=== PATIENT | male | born 1935 | race Caucasian/White ===

== ENCOUNTER → 2017-10-12 | Outpatient (CLI) | payer MEDICARE ==
[2017-10-12] MEDS: REGADENOSON 0.4 MG/5 ML DISP.SYRIN. IV (10:31)
== END | disposition home or self-care (01) ==
LOC: NM 12:01
DX: I08.3 Combined rheumatic disorders of mitral, aortic and tricuspid valves (principal); I48.91 Unspecified atrial fibrillation; I27.20 Pulmonary hypertension, unspecified; R53.83 Other fatigue
CPT/HCPCS: 78452; 93017; 93306; 96374; 96375; 96376; A9500; J2785

== ENCOUNTER → 2017-11-02 | Outpatient (CLI) | payer MEDICARE ==
[2017-11-02] MEDS: ALBUTEROL SULFATE 2.5 MG/3 ML NEBU. NEB (10:28)
== END | disposition home or self-care (01) ==
LOC: PF 09:34
DX: J98.8 Other specified respiratory disorders (principal)
CPT/HCPCS: 94060; 94640; 94729; J7613

== ENCOUNTER → 2018-02-28 | Outpatient (CLI) | payer MEDICARE ==
[~2018-02-28] MED LIST: CONTRAST GIVEN. MC
[2018-02-28] MEDS: IOHEXOL 300 MG/ML 100ML VIAL. IV (09:07)
== END | disposition home or self-care (01) ==
LOC: CT 08:27
DX: I71.4 Abdominal aortic aneurysm, without rupture (principal); I70.1 Atherosclerosis of renal artery; K57.30 Diverticulosis of large intestine without perforation or abscess without bleeding; I13.2 Hypertensive heart and chronic kidney disease with heart failure and with stage 5 chronic kidney disease, or end stage renal disease; I50.9 Heart failure, unspecified; N18.5 Chronic kidney disease, stage 5; E21.2 Other hyperparathyroidism; E78.5 Hyperlipidemia, unspecified; D63.1 Anemia in chronic kidney disease; Z95.1 Presence of aortocoronary bypass graft; Z87.891 Personal history of nicotine dependence; Z90.49 Acquired absence of other specified parts of digestive tract
CPT/HCPCS: 71275; 74174; Q9967

== ENCOUNTER 2018-11-13 18:09 | Inpatient (IN) | payer MEDICARE ==
[~2018-11-13] VITALS: Ht 180.3 cm; Wt 68.2 kg
[2018-11-13] VITALS (9 sets, daily range): BP systolic 92–107; BP diastolic 60–69
[~2018-11-13 18:09] MED LIST changes: +ASPI81TA59 PO; +ATORVASTATIN CA80 MG PO; +AZIT250T6 PO; +CALC0.256 PO; +CALC667C6 PO; -CONTRAST GIVEN. MC; +DILT180C29 PO; +FERR-36 PO; +FURO40TA4 PO; +HYDR-2678 PO; +HYDR-2869 PO; +LOSA100T14 PO; +METO50TA29 PO; +MULT-460 PO
[2018-11-13] MEDS ORDERED: IPRATROPIUM BROMIDE 0.5 MG/2.5 ML NEBU. NEB ONE (18:30)
[2018-11-13] MEDS ORDERED: ALBUTEROL SULFATE 2.5 MG/3 ML NEBU. CONT NEB ONE (18:30)
[2018-11-13] MEDS ORDERED: methylPREDNISolone SOD SUCC PF 125 MG/2 ML VIAL. IV ONE (18:30)
[2018-11-13 18:33] LABS: BASO # 0.1 x10^3/uL (0.0-0.2); BASO % 1 % (0-3); EOS # 1.5 x10^3/uL (0.0-0.7); EOS % 13 % (0-3); HEMATOCRIT 38.3 % (39.0-53.0); HEMOGLOBIN 12.2 g/dL (13.0-17.5); LYMPH # 2.8 x10^3/uL (1.0-4.8); LYMPH % 23 % (24-48); MEAN CORPUSCULAR HEMOGLOBIN 31 pg (25-35); MEAN CORPUSCULAR HGB CONC 32 g/dL (31-37); MEAN CORPUSCULAR VOLUME 99 fL (79-100); MONO % 8 % (0-9); NEUT # 6.8 x10^3uL (1.8-7.7); NEUT % 56 % (31-73); PLATELET COUNT 148 x10^3/uL (140-400); RED BLOOD COUNT 3.89 x10^6/uL (4.30-5.70); RED CELL DISTRIBUTION WIDTH 15.4 % (11.5-14.5); WHITE BLOOD COUNT 12.3 x10^3/uL (4.0-11.0)
--- NOTE | 2018-11-13 18:37 | PHYS DOC ---
Past Medical History Past Medical History: Anemia, CAD, Depression, High Cholesterol, Hypertension, Renal Disease, Renal Failure, Other Additional Past Medical Histor: ESRD, Aortic dissection Past Surgical History: Appendectomy, Cholecystectomy, Coronary Bypass Surgery, Tonsillectomy, Other Additional Past Surgical Histo: CABG, cataract extraction, fistula KEI Arm Alcohol Use: Rarely Drug Use: None Adult General Chief Complaint Chief Complaint: DYSPNEA/RESPIRATOY DISTRESS HPI HPI Patient is an 83-year-old male who presents with reports of acute onset of shortness of breath that started earlier this afternoon. Patient states that for the last couple of days that he is not been feeling well, stating that he has been fatigued and a little bit short of breath. He is a dialysis patient and had full dialysis today. Medics indicate that they had arrived that patient' s oxygen saturation was 97% on 3 L of home oxygen but patient was obviously with labored breathing. They indicate that during the short duration that patient was removed from his oxygen and transferred to stretcher that his saturation had dropped down to 63%. Patient was placed on CPAP at this point and states that symptoms had improved a little bit. Patient has had a cough that is been nonproductive. Additional history is limited due to respiratory difficulties. Review of Systems Review of Systems Constitutional: Denies fever or chills [] Respiratory: Positive coughing and shortness of breath [] Cardiovascular: No additional information not addressed in HPI [] GI: Denies abdominal pain, nausea, vomiting or diarrhea [] Integument: Denies rash or skin lesions [] All other systems were reviewed and found to be within normal limits, except as documented in this note. Current Medications Current Medications Current Medications Medications (Trade) Dose Ordered Sig/Mesha Start Time Stop Time Status Last Admin Dose Admin Albuterol Sulfate (Ventolin Neb Soln) 10 mg 1X ONCE 11/13/18 18:30 11/13/18 18:31 DC 11/13/18 18:51 10 MG Ipratropium [place] (Atrovent) 0.5 mg 1X ONCE 11/13/18 18:30 11/13/18 18:31 DC 11/13/18 18:51 0.5 MG Methylprednisolone Sodium Succinate (SOLU-Medrol 125MG VIAL) 125 mg 1X ONCE 11/13/18 18:30 11/13/18 18:31 DC 11/13/18 18:35 125 MG Sodium Chloride 500 ml @ 250 mls/hr 1X ONCE 11/13/18 19:30 11/13/18 21:29 11/13/18 19:31 250 MLS/HR Allergies Allergies Allergies Coded Allergies Type Severity Reaction Last Updated Verified lisinopril Allergy Severe 03/11/15 Yes Physical Exam Physical Exam Constitutional: Well developed, well nourished, in mild respiratory distress, non-toxic appearance. [] HENT: Normocephalic, atraumatic, bilateral external ears normal, oropharynx moist, no oral exudates, nose normal. [] Eyes: PERRLA, EOMI, conjunctiva normal, no discharge. [] Neck: Normal range of motion, no tenderness, supple, no stridor. [] Cardiovascular: Tachycardic rate with irregular rhythm[] Lungs & Thorax: Significantly reduced breath sounds are noted bilaterally with fine wheezes to auscultation [] Abdomen: Bowel sounds normal, soft, no tenderness. [] Skin: Warm, dry, no erythema, no rash. [] Extremities: No tenderness, no cyanosis, no clubbing, ROM intact, with 1+ pitting edema. [] Neurologic: Awake and alert, no focal deficits noted. [] Current Patient Data Vital Signs Vital Signs Date Time Temp Pulse Resp B/P (MAP) Pulse Ox O2 Delivery O2 Flow Rate FiO2 11/13/18 19:30 70 24 96/53 (67) 100 BiPAP/CPAP 11/13/18 18:16 97.4 97.4 Lab Values Laboratory Tests Test 11/13/18 18:15 11/13/18 18:37 11/13/18 18:40 White Blood Count 12.3 x10^3/uL (4.0-11.0) H Red Blood Count 3.89 x10^6/uL (4.30-5.70) L Hemoglobin 12.2 g/dL (13.0-17.5) L Hematocrit 38.3 % (39.0-53.0) L Mean Corpuscular Volume 99 fL (79-100) Mean Corpuscular Hemoglobin 31 pg (25-35) Mean Corpuscular Hemoglobin Concent 32 g/dL (31-37) Red Cell Distribution Width 15.4 % (11.5-14.5) H Platelet Count 148 x10^3/uL (140-400) Neutrophils (%) (Auto) 56 % (31-73) Lymphocytes (%) (Auto) 23 % (24-48) L Monocytes (%) (Auto) 8 % (0-9) Eosinophils (%) (Auto) 13 % (0-3) H Basophils (%) (Auto) 1 % (0-3) Neutrophils # (Auto) 6.8 x10^3uL (1.8-7.7) Lymphocytes # (Auto) 2.8 x10^3/uL (1.0-4.8) Monocytes # (Auto) 1.0 x10^3/uL (0.0-1.1) Eosinophils # (Auto) 1.5 x10^3/uL (0.0-0.7) H Basophils # (Auto) 0.1 x10^3/uL (0.0-0.2) Segmented Neutrophils % 51 % (35-66) Band Neutrophils % 1 % (0-9) Lymphocytes % 24 % (24-48) Monocytes % 10 % (0-10) Eosinophils % 13 % (0-5) H Basophils % 1 % (0-3) Platelet Estimate Adequate (ADEQUATE) Anisocytosis Slight Crenated Cell Present Schistocytes Occ Sodium Level 135 mmol/L (136-145) L Potassium Level 3.8 mmol/L (3.5-5.1) Chloride Level 97 mmol/L (98-107) L Carbon Dioxide Level 28 mmol/L (21-32) Anion Gap 10 (6-14) Blood Urea Nitrogen 37 mg/dL (8-26) H Creatinine 3.8 mg/dL (0.7-1.3) H Estimated GFR (Cockcroft-Gault) 15.3 BUN/Creatinine Ratio 10 (6-20) Glucose Level 245 mg/dL (70-99) H Calcium Level 8.7 mg/dL (8.5-10.1) Phosphorus Level 5.5 mg/dL (2.6-4.7) H Magnesium Level 2.1 mg/dL (1.8-2.4) Total Bilirubin 0.9 mg/dL (0.2-1.0) Aspartate Amino Transferase (AST) 38 U/L (15-37) H Alanine Aminotransferase (ALT) 33 U/L (16-63) Alkaline Phosphatase 157 U/L (46-116) H Troponin I Quantitative 0.078 ng/mL (0.000-0.055) MN-Eby-G-Type Natriuretic Peptide > 26408 pg/mL (0-449) H Total Protein 7.6 g/dL (6.4-8.2) Albumin 3.9 g/dL (3.4-5.0) Albumin/Globulin Ratio 1.1 (1.0-1.7) Influenza Type A Antigen Negative (NEGATIVE) Influenza Type B Antigen Negative (NEGATIVE) O2 Saturation 98 % (92-99) Arterial Blood pH 7.25 (7.35-7.45) L Arterial Blood pCO2 at Patient Temp 59 mmHg (35-46) H Arterial Blood pO2 at Patient Temp 132 mmHg (65-108) H Arterial Blood HCO3 25 mmol/L (21-28) Arterial Blood Base Excess -3 mmol/L (-3-3) FiO2 35 Laboratory Tests 11/13/18 18:15 Laboratory Tests 11/13/18 18:15 EKG EKG [] Interpretation Time: EKG demonstrates tachycardic rate with irregular rhythm with rate of 113. Radiology/Procedures Radiology/Procedures [] Course & Med Decision Making Course & Med Decision Making Pertinent Labs and Imaging studies reviewed. (See chart for details) [] Dragon Disclaimer Dragon Disclaimer This electronic medical record was generated, in whole or in part, using a voice recognition dictation system. Departure Departure Impression: Primary Impression: Acute hypercapnic respiratory failure Additional Impressions: ESRD (end stage renal disease) on dialysis CHF (congestive heart failure) Hypotension Disposition: ADMITTED INPATIENT Admitting Physician: David Tesfaye Condition: IMPROVED Referrals: LICHA BARFIELD MD (PCP) Problem Qualifiers Additional Impressions: CHF (congestive heart failure) Heart failure type: unspecified Heart failure chronicity: unspecified Qualified Codes: I50.9 - Heart failure, unspecified Hypotension Hypotension type: unspecified hypotension type Qualified Codes: I95.9 - Hypotension, unspecified HOA GARZA Jr. DO Nov 13, 2018 18:37
[2018-11-13 18:42] LABS: CALCIUM 8.7 mg/dL (8.5-10.1); CREATININE 3.8 mg/dL (0.7-1.3); GFR 15.3; POTASSIUM 3.8 mmol/L (3.5-5.1)
[2018-11-13 18:48] LABS: ALBUMIN 3.9 g/dL (3.4-5.0); ALBUMIN/GLOBULIN RATIO 1.1 (1.0-1.7); MAGNESIUM 2.1 mg/dL (1.8-2.4); PHOSPHORUS 5.5 mg/dL (2.6-4.7); TOTAL BILIRUBIN 0.9 mg/dL (0.2-1.0); TOTAL PROTEIN 7.6 g/dL (6.4-8.2)
[2018-11-13 18:50] LABS: BASE EXCESS ABG -3 mmol/L (-3-3); HCO3 ABG 25 mmol/L (21-28); PCO2 ABG 59 mmHg (35-46); PO2 ABG 132 mmHg (65-108); SAT O2 ABG 98 % (92-99)
[2018-11-13 18:56] LABS: FIO2 ABG 35
[2018-11-13 19:00] LABS: INFLUENZA A PATIENT NEGATIVE (NEGATIVE); INFLUENZA B PATIENT NEGATIVE (NEGATIVE)
[2018-11-13] MEDS ORDERED: IV NORMAL SALINE 500ML BAG 500 ML IV ONE (19:30)
[2018-11-13 19:37] LABS: % BANDS 1 % (0-9); % BASOS 1 % (0-3); % MONOS 10 % (0-10)
[2018-11-13 19:38] LABS: % EOS 13 % (0-5); % LYMPHS 24 % (24-48); % SEGS 51 % (35-66)
[2018-11-13 19:39] LABS: ANISOCYTOSIS SLIGHT; PLT ESTIMATE ADEQUATE (ADEQUATE); SCHISTOCYTES OCC
[2018-11-13] MEDS ORDERED: ONDANSETRON PF 4 MG/2 ML VIAL. IV PRN (20:15)
[2018-11-13] MEDS ORDERED: MORPHINE SULFATE 2 MG/ML VIAL. IV PRN (20:15)
[2018-11-13] MEDS ORDERED: ACETAMINOPHEN 325 MG TABLET. PO PRN (20:15)
[2018-11-13 20:38] LABS: BASE EXCESS ABG 0 mmol/L (-3-3); HCO3 ABG 26 mmol/L (21-28); PCO2 ABG 48 mmHg (35-46); PO2 ABG 135 mmHg (65-108); SAT O2 ABG 98 % (92-99)
[2018-11-13 20:44] LABS: FIO2 ABG 35
--- NOTE | 2018-11-13 21:30 | NUR ---
Patient admitted to ICU room 106. Arrived via gurney accompanied by RN. Patient alert x4. Family at bedside answering questions at this time. Admission information complete, see for details.
[2018-11-13] MEDS ORDERED: ACET325T9 PO (23:11)
[2018-11-13] MEDS ORDERED: CALC667T4 PO (23:11)
[2018-11-13] MEDS ORDERED: MELA3TAB43 PO (23:11)
[2018-11-13] MEDS ORDERED: ALBU2.5V8 INH (23:11)
[2018-11-13] MEDS ORDERED: ATOR40TA59 PO (23:11)
[2018-11-13] MEDS ORDERED: MIDO5TAB PO (23:11)
[2018-11-13] MEDS ORDERED: UMEC1DIS IH (23:11)
[2018-11-13] MEDS ORDERED: FOLI0.8T30 PO (23:11)
[2018-11-13] MEDS ORDERED: ALBU2.5V5 NEB (23:11)
[2018-11-13] MEDS ORDERED: GUAI600T47 PO (23:11)
--- NOTE | 2018-11-13 23:58 | RAD ---
Chest AP portable at 1846: Reason for examination: Dyspnea for 4 days. History of hypertension, congestive heart failure, CABG and dialysis. Comparison is made to previous study dated 01/16/2016. Double lumen dialysis catheter is present on the right with the tip at the superior vena cava/right atrial junction. There are postop changes again seen in the sternum and mediastinum and in the superior lateral right chest wall. The heart size is enlarged. There is a tortuous aorta. There continues to be elevation of the right hemidiaphragm. There are some increased interstitial markings present in the left lung base and in the right lower lobe as well as some linear density possibly reflecting atelectasis at the right lung base. No pleural effusions are evident. No acute bony abnormalities are seen. Note is made of a vascular stent in the region of the left subclavian artery. IMPRESSION: Cardiomegaly. Tortuous aorta. Increase in interstitial markings at the left lung base which may reflect some interstitial changes or fibrosis. Chronically elevated right hemidiaphragm. Hazy density with atelectasis at the right lung base. Electronically signed by: Elaina Bay MD (11/13/2018 11:55 PM) [facility]
[2018-11-14] VITALS (11 sets, daily range): BP systolic 90–111; BP diastolic 53–69
[2018-11-14 02:13] LABS: BASO % 0 % (0-3); EOS % 1 % (0-3); HEMATOCRIT 32.3 % (39.0-53.0); HEMOGLOBIN 10.4 g/dL (13.0-17.5); LYMPH # 0.3 x10^3/uL (1.0-4.8); LYMPH % 4 % (24-48); MEAN CORPUSCULAR HEMOGLOBIN 31 pg (25-35); MEAN CORPUSCULAR HGB CONC 32 g/dL (31-37); MEAN CORPUSCULAR VOLUME 97 fL (79-100); MONO # 0.1 x10^3/uL (0.0-1.1); MONO % 2 % (0-9); NEUT # 5.6 x10^3uL (1.8-7.7); NEUT % 93 % (31-73); PLATELET COUNT 122 x10^3/uL (140-400); RED BLOOD COUNT 3.32 x10^6/uL (4.30-5.70); RED CELL DISTRIBUTION WIDTH 15.2 % (11.5-14.5)
[2018-11-14 02:49] LABS: CALCIUM 8.4 mg/dL (8.5-10.1); CREATININE 4.3 mg/dL (0.7-1.3); GFR 13.3; POTASSIUM 4.4 mmol/L (3.5-5.1)
--- NOTE | 2018-11-14 06:39 | EKG ---
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
[2018-11-14] MEDS ORDERED: IPRATRPIUM/ALBUTEROL 0.5/2.5MG 3 ML NEBU. NEB SCH (08:00)
--- NOTE | 2018-11-14 08:37 | PDOC1 ---
History and Physical Date of Admission Date of Admission DATE: 11/14/18 TIME: 08:32 Identification/Chief Complaint Chief Complaint Shortness of breath Source Source: Patient History of Present Illness History of Present Illness Patient is an 83-year-old male w/ PMHx CAD s/p CABG, ESRD on HD ThThSa, Chronic afib, HTN who presents with reports of acute onset of shortness of breath that started earlier yesterday afternoon when finishing dialysis. Patient states that for the last couple of days that he is not been feeling well, stating that he has been fatigued and a little bit short of breath. He is a dialysis patient and had full dialysis today. Medics indicate that they had arrived that patient' s oxygen saturation was 97% on 3 L of home oxygen but patient was obviously with labored breathing. They indicate that during the short duration that patient was removed from his oxygen and transferred to stretcher that his saturation had dropped down to 63%. Patient was placed on BIPAP at this point and states that symptoms had improved a little bit. Patient has had a cough that is been nonproductive. Overnight improved fast on BIPAP. He normally follows for all his specialists. He was hypercapnic with a pH of 7.25, pCO2 of 59 and a pO2 of 132 on 35% FiO2. He was kept on BiPAP overnight and his ABGs have improved with a pH of 7.36, pCO2 of 40 and a pO2 of 135 on 35% FiO2. His chest x-ray was consistent with mild CHF. He had chronically elevated right hemidiaphragm. He feels better. He wants to know if he could go home. He states he was in the process of getting evaluation for BiPAP for his chronic hypercapnia at . Past Medical History Cardiovascular: CAD, HTN, Syncope, Hyperlipidemia, Other Pulmonary: No pertinent hx CENTRAL NERVOUS SYSTEM: Other GI: No pertinent hx Heme/Onc: Anemia NOS Psych: No pertinent hx Musculoskeletal: low back pain, Osteoarthritis Infectious disease: No pertinent hx Renal/: Chronic renal failure Endocrine: Hyperparathyroidism Past Surgical History Past Surgical History: Appendectomy, CABG, Other Family History Family History: Coronary Artery Disease Social History Smoke: No ALCOHOL: none Drugs: None Current Problem List Problem List Problems Medical Problems: (1) Acute hypercapnic respiratory failure Status: Acute (2) CHF (congestive heart failure) Status: Acute (3) ESRD (end stage renal disease) on dialysis Status: Acute (4) Hypotension Status: Acute Current Medications Current Medications Current Medications Ipratropium [place] (Atrovent) 0.5 mg 1X ONCE NEB Last administered on at 18:51; Start 11/13/18 at 18:30; Stop 11/13/18 at 18:31; Status DC Methylprednisolone Sodium Succinate (SOLU-Medrol 125MG VIAL) 125 mg 1X ONCE IV Last administered on 11/13/18at 18:35; Start 11/13/18 at 18:30; Stop 11/13/18 at 18:31; Status DC Albuterol Sulfate (Ventolin Neb Soln) 10 mg 1X ONCE CONT NEB Last administered on 11/13/18at 18:51; Start 11/13/18 at 18:30; Stop 11/13/18 at 18:31 ; Status DC Sodium Chloride 500 ml @ 250 mls/hr 1X ONCE IV Last administered on at 19:31; Start 11/13/18 at 19:30; Stop 11/13/18 at 21:29; Status DC Ondansetron HCl (Zofran) 4 mg PRN Q8HRS PRN IV NAUSEA/VOMITING; Start 11/13/18 at 20:15; Stop 11/14/18 at 20:14 Morphine Sulfate (Morphine Sulfate) 2 mg PRN Q2HR PRN IV PAIN; Start 11/13/18 at 20:15; Stop 11/14/18 at 20:14 Acetaminophen (Tylenol) 650 mg PRN Q4HRS PRN PO FEVER; Start 11/13/18 at 20:15 ; Stop 11/14/18 at 20:14 Albuterol/ Ipratropium (Duoneb) 3 ml RTQID NEB Last administered on 11/14/18at 08:10; Start 11/14/18 at 08:00; Stop 11/15/18 at 07:59 Active Scripts Active Diltiazem 24HR Cd (Diltiazem Hcl) 180 Mg Cap.er.24h 180 Mg PO DAILY Phoslo (Calcium Acetate) 667 Mg Capsule 667 Mg PO TIDWMEALS Azithromycin Tablet (Azithromycin) 250 Mg Tablet 250 Mg PO DAILY Reported Anoro Ellipta 62.5-25 Mcg Inh (Umeclidinium Brm/Vilanterol Tr) 1 Each Disk.w.dev 1 Each IH DAILY Renal Vitamin Tablet (Folic Acid/Vit Bcomp,C) 0.8 Mg Tablet 0.8 Mg PO DAILY Midodrine Hcl 5 Mg Tablet 5 Mg PO PRN DAILY PRN Melatonin 3 Mg Tab.rapdis 3 Mg PO DAILY Mucinex (Guaifenesin) 600 Mg Tablet.er 1 Tab PO DAILY Calcium Acetate 667 Mg Tablet 667 Mg PO TIDWMEALS Atorvastatin Calcium 40 Mg Tablet 40 Mg PO HS Albuterol Sulfate Neb Soln (Albuterol Sulfate) 2.5 Mg/3 Ml Vial.neb 2.5 Mg NEB PRN Q6HRS Proair Hfa Inhaler (Albuterol Sulfate) 8.5 Gm Hfa.aer.ad 2 Puff INH PRN Q6HRS PRN Tylenol (Acetaminophen) 325 Mg Tablet 650 Mg PO PRN Q6HRS Lortab 5-325 mg Tablet (Hydrocodone/Acetaminophen) 1 Each Tablet 1-2 Tab PO Q4- 6HRS PRN Furosemide 40 Mg Tablet 80 Mg PO DAILY Iron (Ferrous Sulfate) 325 Mg Tablet 325 Mg PO DAILY Children's Aspirin (Aspirin) 81 Mg Tab.chew 81 Mg PO DAILY Multiple Vitamin (Multivitamin With Minerals) 1 Each Tablet 1 Each PO DAILY Allergies Allergies: Coded Allergies: lisinopril (Verified Allergy, Severe, 03/11/15) coughing ROS General: YES: Fatigue, Malaise; No: Chills, Night Sweats, Appetite, Other PSYCHOLOGICAL ROS: No: Anxiety, Behavioral Disorder, Concentration difficultie , Decreased libido, Depression, Disorientation, Hallucinations, Hostility, Irritablity, Memory difficulties, Mood Swings, Obsessive thoughts, Physical abuse, Sexual abuse, Sleep disturbances, Suicidal ideation, Other Eyes: No Blurry vision, No Decreased vision, No Double vision, No Dry eyes, No Excessive tearing, No Eye Pain, No Itchy Eyes, No Loss of vision, No Photophobia , No Scotomata, No Uses contacts, No Uses glasses, No Other HEENT: No: Heacaches, Visual Changes, Hearing change, Nasal congestion, Nasal discharge, Oral lesions, Sinus pain, Sore Throat, Epistaxis, Sneezing, Snoring, Tinnitus, Vertigo, Vocal changes, Other ALLERGY AND IMMUNOLOGY: No: Hives, Insect Bite Sensitivity, Itchy/Watery Eyes, Nasal Congestion, Post Nasal Drip, Seasonal Allergies, Other Hematological and Lymphatic: No: Bleeding Problems, Blood Clots, Blood Transfusions, Brusing, Night Sweats, Pallor, Swollen Lymph Nodes, Other ENDOCRINE: No: Breast Changes, Galactorrhea, Hair Pattern Changes, Hot Flashes , Malaise/lethargy, Mood Swings, Palpitations, Polydipsia/polyuria, Skin Changes , Temperature Intolerance, Unexpected Weight Changes, Other Breast: No New/Changing Breast Lumps, No Nipple changes, No Nipple discharge, No Other Respiratory: YES: Shortness of breath; No: Cough, Hemoptysis, Orthopnea, Pleuritic Pain, SOB with excertion, Sputum Changes, Stridor, Tachypnea, Wheezing, Other Cardiovascular: No Chest Pain, No Palpitations, No Orthopnea, No Paroxysmal Noc. Dyspnea, No Edema, No Lt Headedness, No Other Gastrointestinal: No Nausea, No Vomiting, No Abdominal Pain, No Diarrhea, No Constipation, No Melena, No Hematochezia, No Other Genitourinary: No Dysuria, No Frequency, No Incontinence, No Hematuria, No Retention, No Discharge, No Urgency, No Pain, No Flank Pain, No Other, No , No , No , No , No , No , No Musculoskeletal: No Gait Disturbance, No Joint Pain, No Joint Stiffness, No Joint Swelling, No Muscle Pain, No Muscular Weakness, No Pain In:, No Swelling In:, No Other Neurological: No Behavorial Changes, No Bowel/Bladder ControlChng, No Confusion , No Dizziness, No Gait Disturbance, No Headaches, No Impaired Coord/balance, No Memory Loss, No Numbness/Tingling, No Seizures, No Speech Problems, No Tremors, No Visual Changes, No Weakness, No Other Skin: No Dry Skin, No Eczema, No Hair Changes, No Lumps, No Mole Changes, No Mottling, No Nail Changes, No Pruritus, No Rash, No Skin Lesion Changes, No Other, No Acne Physical Exam General: Alert, Oriented X3, Cooperative, No acute distress HEENT: Atraumatic, PERRLA, EOMI, Mucous membr. moist/pink Lungs: Other (Scattered wheezes) Heart: S1S2, RRR, no gallops, no murmurs Abdomen: Normal bowel sounds, Soft, No tenderness, No hepatosplenomegaly, No masses Rectal Exam: not examined Extremities: No clubbing, No cyanosis, No edema, Normal pulses, No tenderness/ swelling Skin: No rashes, No breakdown, No significant lesion Neuro: Normal gait, Normal speech, Strength at 5/5 X4 ext, Normal tone, Sensation intact, Cranial nerves 3-12 NL, Reflexes 2+ Psych/Mental Status: Mental status NL, Mood NL Vitals Vitals Vital Signs Date Time Temp Pulse Resp B/P (MAP) Pulse Ox O2 Delivery O2 Flow Rate FiO2 11/14/18 08:02 100 Nasal Cannula 3.0 11/14/18 06:00 73 20 95/59 (71) 11/14/18 04:00 96.9 96.9 Labs Labs Laboratory Tests Test 11/13/18 18:15 11/13/18 18:37 11/13/18 18:40 11/13/18 20:39 White Blood Count 12.3 x10^3/uL (4.0-11.0) Red Blood Count 3.89 x10^6/uL (4.30-5.70) Hemoglobin 12.2 g/dL (13.0-17.5) Hematocrit 38.3 % (39.0-53.0) Mean Corpuscular Volume 99 fL (79-100) Mean Corpuscular Hemoglobin 31 pg (25-35) Mean Corpuscular Hemoglobin Concent 32 g/dL (31-37) Red Cell Distribution Width 15.4 % (11.5-14.5) Platelet Count 148 x10^3/uL (140-400) Neutrophils (%) (Auto) 56 % (31-73) Lymphocytes (%) (Auto) 23 % (24-48) Monocytes (%) (Auto) 8 % (0-9) Eosinophils (%) (Auto) 13 % (0-3) Basophils (%) (Auto) 1 % (0-3) Neutrophils # (Auto) 6.8 x10^3uL (1.8-7.7) Lymphocytes # (Auto) 2.8 x10^3/uL (1.0-4.8) Monocytes # (Auto) 1.0 x10^3/uL (0.0-1.1) Eosinophils # (Auto) 1.5 x10^3/uL (0.0-0.7) Basophils # (Auto) 0.1 x10^3/uL (0.0-0.2) Segmented Neutrophils % 51 % (35-66) Band Neutrophils % 1 % (0-9) Lymphocytes % 24 % (24-48) Monocytes % 10 % (0-10) Eosinophils % 13 % (0-5) Basophils % 1 % (0-3) Platelet Estimate Adequate (ADEQUATE) Anisocytosis Slight Crenated Cell Present Schistocytes Occ Sodium Level 135 mmol/L (136-145) Potassium Level 3.8 mmol/L (3.5-5.1) Chloride Level 97 mmol/L (98-107) Carbon Dioxide Level 28 mmol/L (21-32) Anion Gap 10 (6-14) Blood Urea Nitrogen 37 mg/dL (8-26) Creatinine 3.8 mg/dL (0.7-1.3) Estimated GFR (Cockcroft-Gault) 15.3 BUN/Creatinine Ratio 10 (6-20) Glucose Level 245 mg/dL (70-99) Calcium Level 8.7 mg/dL (8.5-10.1) Phosphorus Level 5.5 mg/dL (2.6-4.7) Magnesium Level 2.1 mg/dL (1.8-2.4) Total Bilirubin 0.9 mg/dL (0.2-1.0) Aspartate Amino Transf (AST/SGOT) 38 U/L (15-37) Alanine Aminotransferase (ALT/SGPT) 33 U/L (16-63) Alkaline Phosphatase 157 U/L (46-116) Troponin I Quantitative 0.078 ng/mL (0.000-0.055) [id number]-Kmf-[id number]-Type Natriuretic Peptide > 97154 pg/mL (0-449) Total Protein 7.6 g/dL (6.4-8.2) Albumin 3.9 g/dL (3.4-5.0) Albumin/Globulin Ratio 1.1 (1.0-1.7) Influenza Type A Antigen Negative (NEGATIVE) Influenza Type B Antigen Negative (NEGATIVE) O2 Saturation 98 % (92-99) 98 % (92-99) Arterial Blood pH 7.25 (7.35-7.45) 7.36 (7.35-7.45) Arterial Blood pCO2 at Patient Temp 59 mmHg (35-46) 48 mmHg (35-46) Arterial Blood pO2 at Patient Temp 132 mmHg (65-108) 135 mmHg (65-108) Arterial Blood HCO3 25 mmol/L (21-28) 26 mmol/L (21-28) Arterial Blood Base Excess -3 mmol/L (-3-3) 0 mmol/L (-3-3) FiO2 35 35 Test 11/13/18 22:55 11/14/18 02:00 Troponin I Quantitative 0.112 ng/mL (0.000-0.055) 0.123 ng/mL (0.000-0.055) White Blood Count 6.0 x10^3/uL (4.0-11.0) Red Blood Count 3.32 x10^6/uL (4.30-5.70) Hemoglobin 10.4 g/dL (13.0-17.5) Hematocrit 32.3 % (39.0-53.0) Mean Corpuscular Volume 97 fL (79-100) Mean Corpuscular Hemoglobin 31 pg (25-35) Mean Corpuscular Hemoglobin Concent 32 g/dL (31-37) Red Cell Distribution Width 15.2 % (11.5-14.5) Platelet Count 122 x10^3/uL (140-400) Neutrophils (%) (Auto) 93 % (31-73) Lymphocytes (%) (Auto) 4 % (24-48) Monocytes (%) (Auto) 2 % (0-9) Eosinophils (%) (Auto) 1 % (0-3) Basophils (%) (Auto) 0 % (0-3) Neutrophils # (Auto) 5.6 x10^3uL (1.8-7.7) Lymphocytes # (Auto) 0.3 x10^3/uL (1.0-4.8) Monocytes # (Auto) 0.1 x10^3/uL (0.0-1.1) Eosinophils # (Auto) 0.0 x10^3/uL (0.0-0.7) Basophils # (Auto) 0.0 x10^3/uL (0.0-0.2) Sodium Level 136 mmol/L (136-145) Potassium Level 4.4 mmol/L (3.5-5.1) Chloride Level 98 mmol/L (98-107) Carbon Dioxide Level 30 mmol/L (21-32) Anion Gap 8 (6-14) Blood Urea Nitrogen 40 mg/dL (8-26) Creatinine 4.3 mg/dL (0.7-1.3) Estimated GFR (Cockcroft-Gault) 13.3 Glucose Level 128 mg/dL (70-99) Calcium Level 8.4 mg/dL (8.5-10.1) Laboratory Tests Test 11/13/18 18:15 11/13/18 18:37 11/13/18 18:40 11/13/18 20:39 White Blood Count 12.3 x10^3/uL (4.0-11.0) Red Blood Count 3.89 x10^6/uL (4.30-5.70) Hemoglobin 12.2 g/dL (13.0-17.5) Hematocrit 38.3 % (39.0-53.0) Mean Corpuscular Volume 99 fL (79-100) Mean Corpuscular Hemoglobin 31 pg (25-35) Mean Corpuscular Hemoglobin Concent 32 g/dL (31-37) Red Cell Distribution Width 15.4 % (11.5-14.5) Platelet Count 148 x10^3/uL (140-400) Neutrophils (%) (Auto) 56 % (31-73) Lymphocytes (%) (Auto) 23 % (24-48) Monocytes (%) (Auto) 8 % (0-9) Eosinophils (%) (Auto) 13 % (0-3) Basophils (%) (Auto) 1 % (0-3) Neutrophils # (Auto) 6.8 x10^3uL (1.8-7.7) Lymphocytes # (Auto) 2.8 x10^3/uL (1.0-4.8) Monocytes # (Auto) 1.0 x10^3/uL (0.0-1.1) Eosinophils # (Auto) 1.5 x10^3/uL (0.0-0.7) Basophils # (Auto) 0.1 x10^3/uL (0.0-0.2) Segmented Neutrophils % 51 % (35-66) Band Neutrophils % 1 % (0-9) Lymphocytes % 24 % (24-48) Monocytes % 10 % (0-10) Eosinophils % 13 % (0-5) Basophils % 1 % (0-3) Platelet Estimate Adequate (ADEQUATE) Anisocytosis Slight Crenated Cell Present Schistocytes Occ Sodium Level 135 mmol/L (136-145) Potassium Level 3.8 mmol/L (3.5-5.1) Chloride Level 97 mmol/L (98-107) Carbon Dioxide Level 28 mmol/L (21-32) Anion Gap 10 (6-14) Blood Urea Nitrogen 37 mg/dL (8-26) Creatinine 3.8 mg/dL (0.7-1.3) Estimated GFR (Cockcroft-Gault) 15.3 BUN/Creatinine Ratio 10 (6-20) Glucose Level 245 mg/dL (70-99) Calcium Level 8.7 mg/dL (8.5-10.1) Phosphorus Level 5.5 mg/dL (2.6-4.7) Magnesium Level 2.1 mg/dL (1.8-2.4) Total Bilirubin 0.9 mg/dL (0.2-1.0) Aspartate Amino Transf (AST/SGOT) 38 U/L (15-37) Alanine Aminotransferase (ALT/SGPT) 33 U/L (16-63) Alkaline Phosphatase 157 U/L (46-116) Troponin I Quantitative 0.078 ng/mL (0.000-0.055) IN-Nek-P-Type Natriuretic Peptide > 81176 pg/mL (0-449) Total Protein 7.6 g/dL (6.4-8.2) Albumin 3.9 g/dL (3.4-5.0) Albumin/Globulin Ratio 1.1 (1.0-1.7) Influenza Type A Antigen Negative (NEGATIVE) Influenza Type B Antigen Negative (NEGATIVE) O2 Saturation 98 % (92-99) 98 % (92-99) Arterial Blood pH 7.25 (7.35-7.45) 7.36 (7.35-7.45) Arterial Blood pCO2 at Patient Temp 59 mmHg (35-46) 48 mmHg (35-46) Arterial Blood pO2 at Patient Temp 132 mmHg (65-108) 135 mmHg (65-108) Arterial Blood HCO3 25 mmol/L (21-28) 26 mmol/L (21-28) Arterial Blood Base Excess -3 mmol/L (-3-3) 0 mmol/L (-3-3) FiO2 35 35 Test 11/13/18 22:55 4/17/19 02:00 Troponin I Quantitative 0.112 ng/mL (0.000-0.055) 0.123 ng/mL (0.000-0.055) White Blood Count 6.0 x10^3/uL (4.0-11.0) Red Blood Count 3.32 x10^6/uL (4.30-5.70) Hemoglobin 10.4 g/dL (13.0-17.5) Hematocrit 32.3 % (39.0-53.0) Mean Corpuscular Volume 97 fL (79-100) Mean Corpuscular Hemoglobin 31 pg (25-35) Mean Corpuscular Hemoglobin Concent 32 g/dL (31-37) Red Cell Distribution Width 15.2 % (11.5-14.5) Platelet Count 122 x10^3/uL (140-400) Neutrophils (%) (Auto) 93 % (31-73) Lymphocytes (%) (Auto) 4 % (24-48) Monocytes (%) (Auto) 2 % (0-9) Eosinophils (%) (Auto) 1 % (0-3) Basophils (%) (Auto) 0 % (0-3) Neutrophils # (Auto) 5.6 x10^3uL (1.8-7.7) Lymphocytes # (Auto) 0.3 x10^3/uL (1.0-4.8) Monocytes # (Auto) 0.1 x10^3/uL (0.0-1.1) Eosinophils # (Auto) 0.0 x10^3/uL (0.0-0.7) Basophils # (Auto) 0.0 x10^3/uL (0.0-0.2) Sodium Level 136 mmol/L (136-145) Potassium Level 4.4 mmol/L (3.5-5.1) Chloride Level 98 mmol/L (98-107) Carbon Dioxide Level 30 mmol/L (21-32) Anion Gap 8 (6-14) Blood Urea Nitrogen 40 mg/dL (8-26) Creatinine 4.3 mg/dL (0.7-1.3) Estimated GFR (Cockcroft-Gault) 13.3 Glucose Level 128 mg/dL (70-99) Calcium Level 8.4 mg/dL (8.5-10.1) VTE Prophylaxis Ordered VTE Prophylaxis Devices: No VTE Pharmacological Prophylaxi: Yes Assessment/Plan Assessment/Plan A/P: Acute hypoxic respiratory failure - mitigated overnight with BIPAP, feeling improved. CAD s/p CABG - optimized on meds ESRD on HD ThThSa - due tomorrow Chronic afib - stable on meds, has cardiology f/u HTN - cont meds FEN - Cardiac diet PPX - Heparin FULL CODE ICU admission overnight for hypoxic/hypercapneic resp failure, needs PT/OT evaluation and portable O2 concentrator to avoid such future events and sleep study for CPAP/BIPAP at home. HOWARD KIM MD Nov 14, 2018 08:37
[2018-11-14] MEDS ORDERED: SODIUM CHL/ALOE VERA NASAL GEL 14.1GM TUBE. NS PRN (09:45)
--- NOTE | 2018-11-14 10:24 | PDOC2 ---
CONSULT Date of Consult Date of Consult DATE: 11/14/18 TIME: 10:24 Reason for Consult Reason for Consult: ESRD Source Source: Chart review History of Present Illness Reason for Visit: Patient is an 83-year-old CM ESRD on HD, CAD s/p CABG, Chronic afib, COPD , HTN who presents with reports of acute onset of shortness of breath that started earlier yesterday afternoon when finishing dialysis. Patient states that for the last couple of days that he is not been feeling well, stating that he has been fatigued and a little bit short of breath. As per Medics patient's oxygen saturation was 97% on 3 L of home oxygen but patient was with labored breathing. [facility] down to 63%. Patient was placed on BIPAP at this point . Patient has had a cough that is been nonproductive. Overnight improved fast on BIPAP. ER Physician paged me last night and reported that Pt was given IV Boluses as his BP was in 75 systolic and plan to start Pressors and transfer to ICU Pt has Completed his full HD treatment yesterday , Renal labs, E-Lytes were stable This am He is feeling fine. He is more concerned about removing his TDC . He has AVF Lt arm revised recently(Aneurysms) and AVF glez sbeen used only 2-3 times with Infiltration x1 at his OP unit He normally follows [facility] for all his specialists. He had chronically elevated right hemidiaphragm. Past Medical History Cardiovascular: CAD, HTN, Syncope, Hyperlipidemia, Other Pulmonary: No pertinent hx CENTRAL NERVOUS SYSTEM: Other GI: No pertinent hx Heme/Onc: Anemia NOS Psych: No pertinent hx Musculoskeletal: low back pain, Osteoarthritis Infectious disease: No pertinent hx Renal/: Chronic renal failure Endocrine: Hyperparathyroidism Past Surgical History Past Surgical History: Appendectomy, CABG, Other Family History Family History: Coronary Artery Disease Social History ALCOHOL: none Drugs: None Current Problem List Problem List Problems Medical Problems: (1) Acute hypercapnic respiratory failure Status: Acute (2) CHF (congestive heart failure) Status: Acute (3) ESRD (end stage renal disease) on dialysis Status: Acute (4) Hypotension Status: Acute Current Medications Current Medications Current Medications Ipratropium [place] (Atrovent) 0.5 mg 1X ONCE NEB Last administered on at 18:51; Start 11/13/18 at 18:30; Stop 11/13/18 at 18:31; Status DC Methylprednisolone Sodium Succinate (SOLU-Medrol 125MG VIAL) 125 mg 1X ONCE IV Last administered on 11/13/18at 18:35; Start 11/13/18 at 18:30; Stop 11/13/18 at 18:31; Status DC Albuterol Sulfate (Ventolin Neb Soln) 10 mg 1X ONCE CONT NEB Last administered on 11/13/18at 18:51; Start 11/13/18 at 18:30; Stop 11/13/18 at 18:31 ; Status DC Sodium Chloride 500 ml @ 250 mls/hr 1X ONCE IV Last administered on at 19:31; Start 11/13/18 at 19:30; Stop 11/13/18 at 21:29; Status DC Ondansetron HCl (Zofran) 4 mg PRN Q8HRS PRN IV NAUSEA/VOMITING; Start 11/13/18 at 20:15; Stop 11/14/18 at 20:14 Morphine Sulfate (Morphine Sulfate) 2 mg PRN Q2HR PRN IV PAIN; Start 11/13/18 at 20:15; Stop 11/14/18 at 20:14 Acetaminophen (Tylenol) 650 mg PRN Q4HRS PRN PO FEVER; Start 11/13/18 at 20:15 ; Stop 11/14/18 at 20:14 Albuterol/ Ipratropium (Duoneb) 3 ml RTQID NEB Last administered on 11/14/18at 08:10; Start 11/14/18 at 08:00; Stop 11/15/18 at 07:59 Sodium Chloride ([place] Saline Nasal) 1 samuel PRN DAILY PRN NS NASAL CONGESTION; Start 11/14/18 at 09:45 Active Scripts Active Diltiazem 24HR Cd (Diltiazem Hcl) 180 Mg Cap.er.24h 180 Mg PO DAILY Phoslo (Calcium Acetate) 667 Mg Capsule 667 Mg PO TIDWMEALS Azithromycin Tablet (Azithromycin) 250 Mg Tablet 250 Mg PO DAILY Reported Anoro Ellipta 62.5-25 Mcg Inh (Umeclidinium Brm/Vilanterol Tr) 1 Each Disk.w.dev 1 Each IH DAILY Renal Vitamin Tablet (Folic Acid/Vit Bcomp,C) 0.8 Mg Tablet 0.8 Mg PO DAILY Midodrine Hcl 5 Mg Tablet 5 Mg PO PRN DAILY PRN Melatonin 3 Mg Tab.rapdis 3 Mg PO DAILY Mucinex (Guaifenesin) 600 Mg Tablet.er 1 Tab PO DAILY Calcium Acetate 667 Mg Tablet 667 Mg PO TIDWMEALS Atorvastatin Calcium 40 Mg Tablet 40 Mg PO HS Albuterol Sulfate Neb Soln (Albuterol Sulfate) 2.5 Mg/3 Ml Vial.neb 2.5 Mg NEB PRN Q6HRS Proair Hfa Inhaler (Albuterol Sulfate) 8.5 Gm Hfa.aer.ad 2 Puff INH PRN Q6HRS PRN Tylenol (Acetaminophen) 325 Mg Tablet 650 Mg PO PRN Q6HRS Lortab 5-325 mg Tablet (Hydrocodone/Acetaminophen) 1 Each Tablet 1-2 Tab PO Q4- 6HRS PRN Furosemide 40 Mg Tablet 80 Mg PO DAILY Iron (Ferrous Sulfate) 325 Mg Tablet 325 Mg PO DAILY Children's Aspirin (Aspirin) 81 Mg Tab.chew 81 Mg PO DAILY Multiple Vitamin (Multivitamin With Minerals) 1 Each Tablet 1 Each PO DAILY Allergies Allergies: Coded Allergies: lisinopril (Verified Allergy, Severe, 03/11/15) coughing ROS Review of System As per HPI Physical Exam Physical Exam General: NAD HEENT: OM moist, Chronic O2 by NC Neck Supple Lungs: Scattered wheezes, Non labored Heart: S1S2, RRR, Abdomen: Normal bowel sounds, Soft, No tenderness, Extremities: No edema, Lt Upper arm AVF, good thrill and Bruit Skin: No rashes,, Ecchymosis Lt side of chest and Lt arm Neuro:Grossly Normal No Wheatley, No CVA or SP tenderness Vital Signs Vital Signs Date Time Temp Pulse Resp B/P (MAP) Pulse Ox O2 Delivery O2 Flow Rate FiO2 11/14/18 08:02 100 Nasal Cannula 3.0 11/14/18 06:00 73 20 95/59 (71) 11/14/18 04:00 96.9 96.9 Assessment & Plan ESRD - HD TTS LE allyn Last HD yesterday Currently No indication for HD Access- AVF Lt tien Had Aneurysmal dilatation, Revised , Now using as OP X3 Has TDC as well, will leave it this week, if successful use of AVF without issues will remove TDC Called and Dw Charge Nurse at OP [facility] unit Acute hypoxic respiratory failure - overnight with BIPAP, feeling improved. Severe COPD has been following at CAD s/p CABG - optimized on meds Chronic afib - stable on meds, has cardiology f/u HTN - Currently BP Low , Did not require Pressors Labs Labs Laboratory Tests Test 11/13/18 18:15 11/13/18 18:37 11/13/18 18:40 11/13/18 20:39 White Blood Count 12.3 x10^3/uL (4.0-11.0) Red Blood Count 3.89 x10^6/uL (4.30-5.70) Hemoglobin 12.2 g/dL (13.0-17.5) Hematocrit 38.3 % (39.0-53.0) Mean Corpuscular Volume 99 fL (79-100) Mean Corpuscular Hemoglobin 31 pg (25-35) Mean Corpuscular Hemoglobin Concent 32 g/dL (31-37) Red Cell Distribution Width 15.4 % (11.5-14.5) Platelet Count 148 x10^3/uL (140-400) Neutrophils (%) (Auto) 56 % (31-73) Lymphocytes (%) (Auto) 23 % (24-48) Monocytes (%) (Auto) 8 % (0-9) Eosinophils (%) (Auto) 13 % (0-3) Basophils (%) (Auto) 1 % (0-3) Neutrophils # (Auto) 6.8 x10^3uL (1.8-7.7) Lymphocytes # (Auto) 2.8 x10^3/uL (1.0-4.8) Monocytes # (Auto) 1.0 x10^3/uL (0.0-1.1) Eosinophils # (Auto) 1.5 x10^3/uL (0.0-0.7) Basophils # (Auto) 0.1 x10^3/uL (0.0-0.2) Segmented Neutrophils % 51 % (35-66) Band Neutrophils % 1 % (0-9) Lymphocytes % 24 % (24-48) Monocytes % 10 % (0-10) Eosinophils % 13 % (0-5) Basophils % 1 % (0-3) Platelet Estimate Adequate (ADEQUATE) Anisocytosis Slight Crenated Cell Present Schistocytes Occ Sodium Level 135 mmol/L (136-145) Potassium Level 3.8 mmol/L (3.5-5.1) Chloride Level 97 mmol/L (98-107) Carbon Dioxide Level 28 mmol/L (21-32) Anion Gap 10 (6-14) Blood Urea Nitrogen 37 mg/dL (8-26) Creatinine 3.8 mg/dL (0.7-1.3) Estimated GFR (Cockcroft-Gault) 15.3 BUN/Creatinine Ratio 10 (6-20) Glucose Level 245 mg/dL (70-99) Calcium Level 8.7 mg/dL (8.5-10.1) Phosphorus Level 5.5 mg/dL (2.6-4.7) Magnesium Level 2.1 mg/dL (1.8-2.4) Total Bilirubin 0.9 mg/dL (0.2-1.0) Aspartate Amino Transf (AST/SGOT) 38 U/L (15-37) Alanine Aminotransferase (ALT/SGPT) 33 U/L (16-63) Alkaline Phosphatase 157 U/L (46-116) Troponin I Quantitative 0.078 ng/mL (0.000-0.055) FZ-Ddi-T-Type Natriuretic Peptide > 05120 pg/mL (0-449) Total Protein 7.6 g/dL (6.4-8.2) Albumin 3.9 g/dL (3.4-5.0) Albumin/Globulin Ratio 1.1 (1.0-1.7) Influenza Type A Antigen Negative (NEGATIVE) Influenza Type B Antigen Negative (NEGATIVE) O2 Saturation 98 % (92-99) 98 % (92-99) Arterial Blood pH 7.25 (7.35-7.45) 7.36 (7.35-7.45) Arterial Blood pCO2 at Patient Temp 59 mmHg (35-46) 48 mmHg (35-46) Arterial Blood pO2 at Patient Temp 132 mmHg (65-108) 135 mmHg (65-108) Arterial Blood HCO3 25 mmol/L (21-28) 26 mmol/L (21-28) Arterial Blood Base Excess -3 mmol/L (-3-3) 0 mmol/L (-3-3) FiO2 35 35 Test 11/13/18 22:55 11/14/18 02:00 Troponin I Quantitative 0.112 ng/mL (0.000-0.055) 0.123 ng/mL (0.000-0.055) White Blood Count 6.0 x10^3/uL (4.0-11.0) Red Blood Count 3.32 x10^6/uL (4.30-5.70) Hemoglobin 10.4 g/dL (13.0-17.5) Hematocrit 32.3 % (39.0-53.0) Mean Corpuscular Volume 97 fL (79-100) Mean Corpuscular Hemoglobin 31 pg (25-35) Mean Corpuscular Hemoglobin Concent 32 g/dL (31-37) Red Cell Distribution Width 15.2 % (11.5-14.5) Platelet Count 122 x10^3/uL (140-400) Neutrophils (%) (Auto) 93 % (31-73) Lymphocytes (%) (Auto) 4 % (24-48) Monocytes (%) (Auto) 2 % (0-9) Eosinophils (%) (Auto) 1 % (0-3) Basophils (%) (Auto) 0 % (0-3) Neutrophils # (Auto) 5.6 x10^3uL (1.8-7.7) Lymphocytes # (Auto) 0.3 x10^3/uL (1.0-4.8) Monocytes # (Auto) 0.1 x10^3/uL (0.0-1.1) Eosinophils # (Auto) 0.0 x10^3/uL (0.0-0.7) Basophils # (Auto) 0.0 x10^3/uL (0.0-0.2) Sodium Level 136 mmol/L (136-145) Potassium Level 4.4 mmol/L (3.5-5.1) Chloride Level 98 mmol/L (98-107) Carbon Dioxide Level 30 mmol/L (21-32) Anion Gap 8 (6-14) Blood Urea Nitrogen 40 mg/dL (8-26) Creatinine 4.3 mg/dL (0.7-1.3) Estimated GFR (Cockcroft-Gault) 13.3 Glucose Level 128 mg/dL (70-99) Calcium Level 8.4 mg/dL (8.5-10.1) Laboratory Tests Test 11/13/18 18:15 11/13/18 18:37 11/13/18 18:40 11/13/18 20:39 White Blood Count 12.3 x10^3/uL (4.0-11.0) Red Blood Count 3.89 x10^6/uL (4.30-5.70) Hemoglobin 12.2 g/dL (13.0-17.5) Hematocrit 38.3 % (39.0-53.0) Mean Corpuscular Volume 99 fL (79-100) Mean Corpuscular Hemoglobin 31 pg (25-35) Mean Corpuscular Hemoglobin Concent 32 g/dL (31-37) Red Cell Distribution Width 15.4 % (11.5-14.5) Platelet Count 148 x10^3/uL (140-400) Neutrophils (%) (Auto) 56 % (31-73) Lymphocytes (%) (Auto) 23 % (24-48) Monocytes (%) (Auto) 8 % (0-9) Eosinophils (%) (Auto) 13 % (0-3) Basophils (%) (Auto) 1 % (0-3) Neutrophils # (Auto) 6.8 x10^3uL (1.8-7.7) Lymphocytes # (Auto) 2.8 x10^3/uL (1.0-4.8) Monocytes # (Auto) 1.0 x10^3/uL (0.0-1.1) Eosinophils # (Auto) 1.5 x10^3/uL (0.0-0.7) Basophils # (Auto) 0.1 x10^3/uL (0.0-0.2) Segmented Neutrophils % 51 % (35-66) Band Neutrophils % 1 % (0-9) Lymphocytes % 24 % (24-48) Monocytes % 10 % (0-10) Eosinophils % 13 % (0-5) Basophils % 1 % (0-3) Platelet Estimate Adequate (ADEQUATE) Anisocytosis Slight Crenated Cell Present Schistocytes Occ Sodium Level 135 mmol/L (136-145) Potassium Level 3.8 mmol/L (3.5-5.1) Chloride Level 97 mmol/L (98-107) Carbon Dioxide Level 28 mmol/L (21-32) Anion Gap 10 (6-14) Blood Urea Nitrogen 37 mg/dL (8-26) Creatinine 3.8 mg/dL (0.7-1.3) Estimated GFR (Cockcroft-Gault) 15.3 BUN/Creatinine Ratio 10 (6-20) Glucose Level 245 mg/dL (70-99) Calcium Level 8.7 mg/dL (8.5-10.1) Phosphorus Level 5.5 mg/dL (2.6-4.7) Magnesium Level 2.1 mg/dL (1.8-2.4) Total Bilirubin 0.9 mg/dL (0.2-1.0) Aspartate Amino Transf (AST/SGOT) 38 U/L (15-37) Alanine Aminotransferase (ALT/SGPT) 33 U/L (16-63) Alkaline Phosphatase 157 U/L (46-116) Troponin I Quantitative 0.078 ng/mL (0.000-0.055) QY-Jxu-C-Type Natriuretic Peptide > 84639 pg/mL (0-449) Total Protein 7.6 g/dL (6.4-8.2) Albumin 3.9 g/dL (3.4-5.0) Albumin/Globulin Ratio 1.1 (1.0-1.7) Influenza Type A Antigen Negative (NEGATIVE) Influenza Type B Antigen Negative (NEGATIVE) O2 Saturation 98 % (92-99) 98 % (92-99) Arterial Blood pH 7.25 (7.35-7.45) 7.36 (7.35-7.45) Arterial Blood pCO2 at Patient Temp 59 mmHg (35-46) 48 mmHg (35-46) Arterial Blood pO2 at Patient Temp 132 mmHg (65-108) 135 mmHg (65-108) Arterial Blood HCO3 25 mmol/L (21-28) 26 mmol/L (21-28) Arterial Blood Base Excess -3 mmol/L (-3-3) 0 mmol/L (-3-3) FiO2 35 35 Test 11/13/18 22:55 11/14/18 02:00 Troponin I Quantitative 0.112 ng/mL (0.000-0.055) 0.123 ng/mL (0.000-0.055) White Blood Count 6.0 x10^3/uL (4.0-11.0) Red Blood Count 3.32 x10^6/uL (4.30-5.70) Hemoglobin 10.4 g/dL (13.0-17.5) Hematocrit 32.3 % (39.0-53.0) Mean Corpuscular Volume 97 fL (79-100) Mean Corpuscular Hemoglobin 31 pg (25-35) Mean Corpuscular Hemoglobin Concent 32 g/dL (31-37) Red Cell Distribution Width 15.2 % (11.5-14.5) Platelet Count 122 x10^3/uL (140-400) Neutrophils (%) (Auto) 93 % (31-73) Lymphocytes (%) (Auto) 4 % (24-48) Monocytes (%) (Auto) 2 % (0-9) Eosinophils (%) (Auto) 1 % (0-3) Basophils (%) (Auto) 0 % (0-3) Neutrophils # (Auto) 5.6 x10^3uL (1.8-7.7) Lymphocytes # (Auto) 0.3 x10^3/uL (1.0-4.8) Monocytes # (Auto) 0.1 x10^3/uL (0.0-1.1) Eosinophils # (Auto) 0.0 x10^3/uL (0.0-0.7) Basophils # (Auto) 0.0 x10^3/uL (0.0-0.2) Sodium Level 136 mmol/L (136-145) Potassium Level 4.4 mmol/L (3.5-5.1) Chloride Level 98 mmol/L (98-107) Carbon Dioxide Level 30 mmol/L (21-32) Anion Gap 8 (6-14) Blood Urea Nitrogen 40 mg/dL (8-26) Creatinine 4.3 mg/dL (0.7-1.3) Estimated GFR (Cockcroft-Gault) 13.3 Glucose Level 128 mg/dL (70-99) Calcium Level 8.4 mg/dL (8.5-10.1) Review All relevant outside records, renal labs, imaging studies, telemetry/EKG's were reviewed. NEEL HILL MD Nov 14, 2018 10:24
--- NOTE | 2018-11-14 11:27 | CONS ---
DATE OF CONSULTATION: PULMONARY CONSULTATION ATTENDING PHYSICIAN: Dr. Dubois. REASON FOR CONSULTATION: Dyspnea, respiratory failure. HISTORY OF PRESENT ILLNESS: The patient is an 83-year-old male who has a history of end-stage renal disease, on hemodialysis. He has a history of COPD. He is on oxygen at home at 3 liters at night time. The patient says when he was finishing dialysis, he became short of breath. As a result, he was brought into [facility], which was the nearest one. He normally follows for all his specialists. He was hypercapnic with a pH of 7.25, pCO2 of 59 and a pO2 of 132 on 35% FiO2. He was kept on BiPAP overnight and his ABGs have improved with a pH of 7.36, pCO2 of 40 and a pO2 of 135 on 35% FiO2. His chest x-ray was consistent with mild CHF. He had chronically elevated right hemidiaphragm. He feels better. He wants to know if he could go home. He states he was in the process of getting evaluation for BiPAP for his chronic hypercapnia at . PAST MEDICAL HISTORY: History of CAD, history of hypertension, syncope, hyperlipidemia, probable COPD, chronic respiratory failure, uses oxygen at night time. PAST SURGICAL HISTORY: Appendectomy, CABG. FAMILY HISTORY: Coronary artery disease. SOCIAL HISTORY: He smoked for 30 years before quitting 30 years ago. ALLERGIES: LISINOPRIL. CURRENT MEDICATIONS: Reviewed as listed in the MRAD. REVIEW OF SYSTEMS: Twelve-point system obtained. Pertinent positives discussed in my history of present illness, otherwise noncontributory. All systems that were negative were reviewed as well. PHYSICAL EXAMINATION: VITAL SIGNS: Stable. He has 99% sats on 2 liters. HEENT: Sclerae nonicteric. NECK: Supple. LUNGS: With diminished breath sounds in the bases. CARDIOVASCULAR: Regular rate and rhythm. ABDOMEN: Soft. EXTREMITIES: With ankle edema. LABORATORY DATA: ABGs as discussed in my history of present illness. Influenza screen is negative. BUN 40, creatinine 4.3. White cell count 6.0, hemoglobin 10.4, platelets 122. IMPRESSION: 1. Acute on chronic hypercapnic respiratory failure secondary to acute on chronic diastolic heart failure and underlying chronic obstructive pulmonary disease. 2. End-stage renal disease, on hemodialysis. 3. Abnormal chest x-ray with mild interstitial congestive heart failure and chronically elevated right hemidiaphragm. 4. Possible underlying chronic obstructive pulmonary disease. RECOMMENDATIONS: 1. Clinically much better. He will remain on oxygen p.r.n. during the day and at night time. 2. The patient could be dismissed from a pulmonary standpoint. 3. The patient should follow with regarding reevaluation for nocturnal BiPAP. 4. Discussed with Dr. Dubois and discussed with Nephrology. 5. The patient to follow with all the specialists at post-discharge. ALLISON VICK MD DR: ANJALI/bill JOB#: [id number] / [id number]
--- NOTE | 2018-11-14 13:44 | SNU/HH DC ---
DISCHARGE WITH HOME HEALTH DISCHARGE INFORMATION: Discharge Date: Nov 14, 2018 Final Diagnosis: Problems Medical Problems: (1) Acute hypercapnic respiratory failure Status: Acute (2) CHF (congestive heart failure) Status: Acute (3) ESRD (end stage renal disease) on dialysis Status: Acute (4) Hypotension Status: Acute Condition on Discharge: Stable CODE STATUS: Code Status: Full HOME HEALTH: Face to Face: I certify this patient is under my care and that I, or a nurse practitioner or physician's perioperative assistant working with me, had a face to face encounter that meets the physician face to face encounter requirements with this patient on 11/14/18. Medical Complications: CHF, Other (ESRD) RN For Eval/Treatment: Yes Physical Therapy For: Evalulation/Treatment Occupational Therapy For: Evaluation/Treatment Home Health Aide For: Self-care Pt Meets Homebound Status: Extreme weakness w/ amb., Limited distance walking POST DISCHARGE ORDERS: Activity Instructions for Disc: No restrictions, Resume previous activity, Activity as tolerated Weight Bearing Status after Di: Full weight bearing DIET AFTER DISCHARGE: Cardiac Wound/Incision Care: Reinforce dressing PRN CHECKS AFTER DISCHARGE: Checks after discharge: Check blood press - daily FOLLOW-UP: Follow up with: [facility] Sleep Medicine TREATMENT/EQUIPMENT ORDERS: Adaptive Equipment Issued: Walker Discharge Respiratory Equipmen: Oxygen CERTIFICATION STATEMENT: Certification Statement: Certification Statement: Based on the above finding, I certify that this patient is confined to the home and needs intermittent fpc care, physical therapy and/or speech therapy, or continues to need occupational therapy.~ This patient is under my care, and I have initiated the establishment of the plan of care.~ This patient will be followed by myself or a community physician who will periodically review the plan of care. Home Meds Active Scripts Diltiazem Hcl (DILTIAZEM 24HR CD) 180 Mg Cap.er.24h, 180 MG PO DAILY, #30 2 Refills Prov:JALEN NAM MD 01/18/16 Calcium Acetate (PHOSLO) 667 Mg Capsule, 667 MG PO TIDWMEALS, #90 Prov:JALEN NAM MD 01/18/16 Azithromycin (AZITHROMYCIN TABLET) 250 Mg Tablet, 250 MG PO DAILY, #3 Prov:JALEN NAM MD 01/18/16 Reported Medications Umeclidinium Brm/Vilanterol Tr (ANORO ELLIPTA 62.5-25 MCG INH) 1 Each Disk.w.dev , 1 EACH IH DAILY for Pulm HTN, INH 11/13/18 Folic Acid/Vit Bcomp,C (Renal Vitamin Tablet) 0.8 Mg Tablet, 0.8 MG PO DAILY for Dialysis , TAB 11/13/18 Midodrine Hcl (MIDODRINE HCL) 5 Mg Tablet, 5 MG PO PRN DAILY PRN for Dialysis , TAB 11/13/18 Melatonin (MELATONIN) 3 Mg Tab.rapdis, 3 MG PO DAILY for sleep, TAB 11/13/18 Guaifenesin (MUCINEX) 600 Mg Tablet.er, 1 TAB PO DAILY for mucus, #14 TAB 11/13/18 Calcium Acetate (CALCIUM ACETATE) 667 Mg Tablet, 667 MG PO TIDWMEALS for DIALYSIS PATIENTS, CAP 11/13/18 Atorvastatin Calcium (ATORVASTATIN CALCIUM) 40 Mg Tablet, 40 MG PO HS for FOR CHOLESTEROL, #30 TAB 0 Refills 11/13/18 Albuterol Sulfate (ALBUTEROL SULFATE NEB SOLN) 2.5 Mg/3 Ml Vial.neb, 2.5 MG NEB PRN Q6HRS for Shortness of breath, EACH 0 Refills 11/13/18 Albuterol Sulfate (PROAIR HFA INHALER) 8.5 Gm Hfa.aer.ad, 2 PUFF INH PRN Q6HRS PRN for SHORTNESS OF BREATH, INHALER 0 Refills 11/13/18 Acetaminophen (TYLENOL) 325 Mg Tablet, 650 MG PO PRN Q6HRS for pain, TAB 11/13/18 Hydrocodone/Acetaminophen (Lortab 5-325 mg Tablet) 1 Each Tablet, 1-2 TAB PO Q4- 6HRS PRN for PAIN, #30 TAB 0 Refills 10/14/14 Furosemide (FUROSEMIDE) 40 Mg Tablet, 80 MG PO DAILY, TAB 10/13/14 Ferrous Sulfate (IRON) 325 Mg Tablet, 325 MG PO DAILY 10/13/14 Aspirin (Children's Aspirin) 81 Mg Tab.chew, 81 MG PO DAILY, TAB.CHEW 10/13/14 Multivitamin With Minerals (MULTIPLE VITAMIN) 1 Each Tablet, 1 EACH PO DAILY 10/13/14 HOWARD KIM MD Nov 14, 2018 13:44
--- NOTE | 2018-11-14 14:38 | PDOC3 ---
Discharge Summary Visit Information Date of Admission: Nov 13, 2018 Date of Discharge: Nov 14, 2018 Admitting Diagnosis: Acute hypoxic/hypercapnic resp failure Final Diagnosis Problems Medical Problems: (1) Acute hypercapnic respiratory failure Status: Acute (2) CHF (congestive heart failure) Status: Acute (3) ESRD (end stage renal disease) on dialysis Status: Acute (4) Hypotension Status: Acute Brief Hospital Course Allergies Allergies Coded Allergies Type Severity Reaction Last Updated Verified lisinopril Allergy Severe 03/11/15 Yes Vital Signs Vital Signs Date Time Temp Pulse Resp B/P (MAP) Pulse Ox O2 Delivery O2 Flow Rate FiO2 11/14/18 12:16 97 11/14/18 12:00 Nasal Cannula 2.0 11/14/18 11:00 66 20 90/59 (69) 11/14/18 08:00 96.6 96.6 Lab Results Laboratory Tests Test 11/13/18 18:15 11/13/18 18:37 11/13/18 18:40 11/13/18 20:39 White Blood Count 12.3 x10^3/uL (4.0-11.0) Red Blood Count 3.89 x10^6/uL (4.30-5.70) Hemoglobin 12.2 g/dL (13.0-17.5) Hematocrit 38.3 % (39.0-53.0) Mean Corpuscular Volume 99 fL (79-100) Mean Corpuscular Hemoglobin 31 pg (25-35) Mean Corpuscular Hemoglobin Concent 32 g/dL (31-37) Red Cell Distribution Width 15.4 % (11.5-14.5) Platelet Count 148 x10^3/uL (140-400) Neutrophils (%) (Auto) 56 % (31-73) Lymphocytes (%) (Auto) 23 % (24-48) Monocytes (%) (Auto) 8 % (0-9) Eosinophils (%) (Auto) 13 % (0-3) Basophils (%) (Auto) 1 % (0-3) Neutrophils # (Auto) 6.8 x10^3uL (1.8-7.7) Lymphocytes # (Auto) 2.8 x10^3/uL (1.0-4.8) Monocytes # (Auto) 1.0 x10^3/uL (0.0-1.1) Eosinophils # (Auto) 1.5 x10^3/uL (0.0-0.7) Basophils # (Auto) 0.1 x10^3/uL (0.0-0.2) Segmented Neutrophils % 51 % (35-66) Band Neutrophils % 1 % (0-9) Lymphocytes % 24 % (24-48) Monocytes % 10 % (0-10) Eosinophils % 13 % (0-5) Basophils % 1 % (0-3) Platelet Estimate Adequate (ADEQUATE) Anisocytosis Slight Crenated Cell Present Schistocytes Occ Sodium Level 135 mmol/L (136-145) Potassium Level 3.8 mmol/L (3.5-5.1) Chloride Level 97 mmol/L (98-107) Carbon Dioxide Level 28 mmol/L (21-32) Anion Gap 10 (6-14) Blood Urea Nitrogen 37 mg/dL (8-26) Creatinine 3.8 mg/dL (0.7-1.3) Estimated GFR (Cockcroft-Gault) 15.3 BUN/Creatinine Ratio 10 (6-20) Glucose Level 245 mg/dL (70-99) Calcium Level 8.7 mg/dL (8.5-10.1) Phosphorus Level 5.5 mg/dL (2.6-4.7) Magnesium Level 2.1 mg/dL (1.8-2.4) Total Bilirubin 0.9 mg/dL (0.2-1.0) Aspartate Amino Transf (AST/SGOT) 38 U/L (15-37) Alanine Aminotransferase (ALT/SGPT) 33 U/L (16-63) Alkaline Phosphatase 157 U/L (46-116) Troponin I Quantitative 0.078 ng/mL (0.000-0.055) UY-Pcw-I-Type Natriuretic Peptide > 68423 pg/mL (0-449) Total Protein 7.6 g/dL (6.4-8.2) Albumin 3.9 g/dL (3.4-5.0) Albumin/Globulin Ratio 1.1 (1.0-1.7) Influenza Type A Antigen Negative (NEGATIVE) Influenza Type B Antigen Negative (NEGATIVE) O2 Saturation 98 % (92-99) 98 % (92-99) Arterial Blood pH 7.25 (7.35-7.45) 7.36 (7.35-7.45) Arterial Blood pCO2 at Patient Temp 59 mmHg (35-46) 48 mmHg (35-46) Arterial Blood pO2 at Patient Temp 132 mmHg (65-108) 135 mmHg (65-108) Arterial Blood HCO3 25 mmol/L (21-28) 26 mmol/L (21-28) Arterial Blood Base Excess -3 mmol/L (-3-3) 0 mmol/L (-3-3) FiO2 35 35 Test 11/13/18 22:55 11/14/18 02:00 Troponin I Quantitative 0.112 ng/mL (0.000-0.055) 0.123 ng/mL (0.000-0.055) White Blood Count 6.0 x10^3/uL (4.0-11.0) Red Blood Count 3.32 x10^6/uL (4.30-5.70) Hemoglobin 10.4 g/dL (13.0-17.5) Hematocrit 32.3 % (39.0-53.0) Mean Corpuscular Volume 97 fL (79-100) Mean Corpuscular Hemoglobin 31 pg (25-35) Mean Corpuscular Hemoglobin Concent 32 g/dL (31-37) Red Cell Distribution Width 15.2 % (11.5-14.5) Platelet Count 122 x10^3/uL (140-400) Neutrophils (%) (Auto) 93 % (31-73) Lymphocytes (%) (Auto) 4 % (24-48) Monocytes (%) (Auto) 2 % (0-9) Eosinophils (%) (Auto) 1 % (0-3) Basophils (%) (Auto) 0 % (0-3) Neutrophils # (Auto) 5.6 x10^3uL (1.8-7.7) Lymphocytes # (Auto) 0.3 x10^3/uL (1.0-4.8) Monocytes # (Auto) 0.1 x10^3/uL (0.0-1.1) Eosinophils # (Auto) 0.0 x10^3/uL (0.0-0.7) Basophils # (Auto) 0.0 x10^3/uL (0.0-0.2) Sodium Level 136 mmol/L (136-145) Potassium Level 4.4 mmol/L (3.5-5.1) Chloride Level 98 mmol/L (98-107) Carbon Dioxide Level 30 mmol/L (21-32) Anion Gap 8 (6-14) Blood Urea Nitrogen 40 mg/dL (8-26) Creatinine 4.3 mg/dL (0.7-1.3) Estimated GFR (Cockcroft-Gault) 13.3 Glucose Level 128 mg/dL (70-99) Calcium Level 8.4 mg/dL (8.5-10.1) Laboratory Tests Test 11/13/18 18:15 11/13/18 18:37 11/13/18 18:40 11/13/18 20:39 White Blood Count 12.3 x10^3/uL (4.0-11.0) Red Blood Count 3.89 x10^6/uL (4.30-5.70) Hemoglobin 12.2 g/dL (13.0-17.5) Hematocrit 38.3 % (39.0-53.0) Mean Corpuscular Volume 99 fL (79-100) Mean Corpuscular Hemoglobin 31 pg (25-35) Mean Corpuscular Hemoglobin Concent 32 g/dL (31-37) Red Cell Distribution Width 15.4 % (11.5-14.5) Platelet Count 148 x10^3/uL (140-400) Neutrophils (%) (Auto) 56 % (31-73) Lymphocytes (%) (Auto) 23 % (24-48) Monocytes (%) (Auto) 8 % (0-9) Eosinophils (%) (Auto) 13 % (0-3) Basophils (%) (Auto) 1 % (0-3) Neutrophils # (Auto) 6.8 x10^3uL (1.8-7.7) Lymphocytes # (Auto) 2.8 x10^3/uL (1.0-4.8) Monocytes # (Auto) 1.0 x10^3/uL (0.0-1.1) Eosinophils # (Auto) 1.5 x10^3/uL (0.0-0.7) Basophils # (Auto) 0.1 x10^3/uL (0.0-0.2) Segmented Neutrophils % 51 % (35-66) Band Neutrophils % 1 % (0-9) Lymphocytes % 24 % (24-48) Monocytes % 10 % (0-10) Eosinophils % 13 % (0-5) Basophils % 1 % (0-3) Platelet Estimate Adequate (ADEQUATE) Anisocytosis Slight Crenated Cell Present Schistocytes Occ Sodium Level 135 mmol/L (136-145) Potassium Level 3.8 mmol/L (3.5-5.1) Chloride Level 97 mmol/L (98-107) Carbon Dioxide Level 28 mmol/L (21-32) Anion Gap 10 (6-14) Blood Urea Nitrogen 37 mg/dL (8-26) Creatinine 3.8 mg/dL (0.7-1.3) Estimated GFR (Cockcroft-Gault) 15.3 BUN/Creatinine Ratio 10 (6-20) Glucose Level 245 mg/dL (70-99) Calcium Level 8.7 mg/dL (8.5-10.1) Phosphorus Level 5.5 mg/dL (2.6-4.7) Magnesium Level 2.1 mg/dL (1.8-2.4) Total Bilirubin 0.9 mg/dL (0.2-1.0) Aspartate Amino Transf (AST/SGOT) 38 U/L (15-37) Alanine Aminotransferase (ALT/SGPT) 33 U/L (16-63) Alkaline Phosphatase 157 U/L (46-116) Troponin I Quantitative 0.078 ng/mL (0.000-0.055) EF-Dxu-Y-Type Natriuretic Peptide > 23343 pg/mL (0-449) Total Protein 7.6 g/dL (6.4-8.2) Albumin 3.9 g/dL (3.4-5.0) Albumin/Globulin Ratio 1.1 (1.0-1.7) Influenza Type A Antigen Negative (NEGATIVE) Influenza Type B Antigen Negative (NEGATIVE) O2 Saturation 98 % (92-99) 98 % (92-99) Arterial Blood pH 7.25 (7.35-7.45) 7.36 (7.35-7.45) Arterial Blood pCO2 at Patient Temp 59 mmHg (35-46) 48 mmHg (35-46) Arterial Blood pO2 at Patient Temp 132 mmHg (65-108) 135 mmHg (65-108) Arterial Blood HCO3 25 mmol/L (21-28) 26 mmol/L (21-28) Arterial Blood Base Excess -3 mmol/L (-3-3) 0 mmol/L (-3-3) FiO2 35 35 Test 11/13/18 22:55 11/14/18 02:00 Troponin I Quantitative 0.112 ng/mL (0.000-0.055) 0.123 ng/mL (0.000-0.055) White Blood Count 6.0 x10^3/uL (4.0-11.0) Red Blood Count 3.32 x10^6/uL (4.30-5.70) Hemoglobin 10.4 g/dL (13.0-17.5) Hematocrit 32.3 % (39.0-53.0) Mean Corpuscular Volume 97 fL (79-100) Mean Corpuscular Hemoglobin 31 pg (25-35) Mean Corpuscular Hemoglobin Concent 32 g/dL (31-37) Red Cell Distribution Width 15.2 % (11.5-14.5) Platelet Count 122 x10^3/uL (140-400) Neutrophils (%) (Auto) 93 % (31-73) Lymphocytes (%) (Auto) 4 % (24-48) Monocytes (%) (Auto) 2 % (0-9) Eosinophils (%) (Auto) 1 % (0-3) Basophils (%) (Auto) 0 % (0-3) Neutrophils # (Auto) 5.6 x10^3uL (1.8-7.7) Lymphocytes # (Auto) 0.3 x10^3/uL (1.0-4.8) Monocytes # (Auto) 0.1 x10^3/uL (0.0-1.1) Eosinophils # (Auto) 0.0 x10^3/uL (0.0-0.7) Basophils # (Auto) 0.0 x10^3/uL (0.0-0.2) Sodium Level 136 mmol/L (136-145) Potassium Level 4.4 mmol/L (3.5-5.1) Chloride Level 98 mmol/L (98-107) Carbon Dioxide Level 30 mmol/L (21-32) Anion Gap 8 (6-14) Blood Urea Nitrogen 40 mg/dL (8-26) Creatinine 4.3 mg/dL (0.7-1.3) Estimated GFR (Cockcroft-Gault) 13.3 Glucose Level 128 mg/dL (70-99) Calcium Level 8.4 mg/dL (8.5-10.1) Brief Hospital Course Patient is an 83-year-old male w/ PMHx CAD s/p CABG, ESRD on HD , Chronic afib, HTN who presents with reports of acute onset of shortness of breath that started earlier this afternoon. Patient states that for the last couple of days that he is not been feeling well, stating that he has been fatigued and a little bit short of breath. He is a dialysis patient and had full dialysis today. Medics indicate that they had arrived that patient's oxygen saturation was 97% on 3 L of home oxygen but patient was obviously with labored breathing. They indicate that during the short duration that patient was removed from his oxygen and transferred to stretcher that his saturation had dropped down to 63% . Patient was placed on CPAP at this point and states that symptoms had improved a little bit. Patient has had a cough that is been nonproductive. Additional history is limited due to respiratory difficulties. Overnight improved fast on BIPAP. He normally follows for all his specialists. He was hypercapnic with a pH of 7.25, pCO2 of 59 and a pO2 of 132 on 35% FiO2. He was kept on BiPAP overnight and his ABGs have improved with a pH of 7.36, pCO2 of 40 and a pO2 of 135 on 35% FiO2. His chest x-ray was consistent with mild CHF. He had chronically elevated right hemidiaphragm. He feels better. He wants to know if he could go home. He states he was in the process of getting evaluation for BiPAP for his chronic hypercapnia at . A/P: Acute hypoxic respiratory failure - mitigated overnight with BIPAP, feeling improved. CAD s/p CABG - optimized on meds ESRD on HD - due tomorrow Chronic afib - stable on meds, has cardiology f/u HTN - cont meds FEN - Cardiac diet PPX - Heparin FULL CODE ICU admission overnight for hypoxic/hypercapneic resp failure, needs PT/OT evaluation and portable O2 concentrator to avoid such future events and sleep study for CPAP/BIPAP at home. Discharge Information Condition at Discharge: Improved Follow Up: Weeks (2) Disposition/Orders: D/C to Home w/ HH Scheduled Acetaminophen (Tylenol) 325 Mg Tablet, 650 MG PO PRN Q6HRS for pain, (Reported) Entered as Reported by: DALILA SAGE on 11/13/182310 Last Taken: Unknown Dose on 11/13/18 Last Action: New Order on 11/13/182310 by DALILA SAGE Albuterol Sulfate (Albuterol Sulfate Neb Soln) 2.5 Mg/3 Ml Vial.neb, 2.5 MG NEB PRN Q6HRS for Shortness of breath, Ref 0 (Reported) Entered as Reported by: DALILA SAGE on 11/13/182310 Last Taken: Unknown Dose on 11/13/18 Last Action: New Order on 11/13/182310 by DALILA SAGE Aspirin (Children's Aspirin) 81 Mg Tab.chew, 81 MG PO DAILY, (Reported) Entered as Reported by: SNEHA OLIVAS on 10/13/14 1041 Last Taken: Unknown Dose on 11/13/18 Last Action: Last Taken Edited on 2310 by DALILA SAGE Atorvastatin Calcium (Atorvastatin Calcium) 40 Mg Tablet, 40 MG PO HS for FOR CHOLESTEROL, #30 Ref 0 (Reported) Entered as Reported by: DALILA SAGE on 11/13/182310 Last Taken: Unknown Dose on 11/12/18 Last Action: New Order on 11/13/182310 by DALILA SAGE Azithromycin (Azithromycin Tablet) 250 Mg Tablet, 250 MG PO DAILY, #3 Prescribed by: JALEN NAM on 01/18/16 1351 Calcium Acetate (Phoslo) 667 Mg Capsule, 667 MG PO TIDWMEALS, #90 Prescribed by: JALEN NAM on 01/18/16 1351 Calcium Acetate (Calcium Acetate) 667 Mg Tablet, 667 MG PO TIDWMEALS for DIALYSIS PATIENTS, (Reported) Entered as Reported by: DALILA SAGE on 11/13/182310 Last Action: New Order on 11/13/182310 by DALILA SAGE Diltiazem Hcl (Diltiazem 24HR Cd) 180 Mg Cap.er.24h, 180 MG PO DAILY, #30 Ref 2 Prescribed by: JALEN NAM on 01/18/16 1351 Ferrous Sulfate (Iron) 325 Mg Tablet, 325 MG PO DAILY, (Reported) Entered as Reported by: SNEHA OLIVAS on 10/13/14 1041 Folic Acid/Vit Bcomp,C (Renal Vitamin Tablet) 0.8 Mg Tablet, 0.8 MG PO DAILY for Dialysis , (Reported) Entered as Reported by: DALILA SAGE on 11/13/182310 Last Action: New Order on 11/13/182310 by DALILA SAGE Furosemide (Furosemide) 40 Mg Tablet, 80 MG PO DAILY, (Reported) Entered as Reported by: SNEHA OLIVAS on 10/13/14 1041 Guaifenesin (Mucinex) 600 Mg Tablet.er, 1 TAB PO DAILY for mucus, #14 (Reported) Entered as Reported by: DALILA SAGE on 11/13/182310 Last Action: New Order on 11/13/182310 by DALILA SAGE Melatonin (Melatonin) 3 Mg Tab.rapdis, 3 MG PO DAILY for sleep, (Reported) Entered as Reported by: DALILA SAGE on 11/13/182310 Last Action: New Order on 11/13/182310 by DALILA SAGE Multivitamin With Minerals (Multiple Vitamin) 1 Each Tablet, 1 EACH PO DAILY, ( Reported) Entered as Reported by: SNEHA OLIVAS on 10/13/14 1041 Umeclidinium Brm/Vilanterol Tr (Anoro Ellipta 62.5-25 Mcg Inh) 1 Each Disk.w.dev , 1 EACH IH DAILY for Pulm HTN, (Reported) Entered as Reported by: DALILA SAGE on 11/13/182310 Last Action: New Order on 11/13/182310 by DALILA SAGE Scheduled PRN Albuterol Sulfate (Proair Hfa Inhaler) 8.5 Gm Hfa.aer.ad, 2 PUFF INH PRN Q6HRS PRN for SHORTNESS OF BREATH, Ref 0 (Reported) Entered as Reported by: DALILA SAGE on 11/13/182310 Last Taken: Unknown Dose on 11/13/18 Last Action: New Order on 11/13/182310 by DALILA SAGE Hydrocodone/Acetaminophen (Lortab 5-325 mg Tablet) 1 Each Tablet, 1-2 TAB PO Q4- 6HRS PRN for PAIN, #30 Ref 0 (Reported) Entered as Reported by: JENNIFER GARCIA on 10/14/14 0846 Midodrine Hcl (Midodrine Hcl) 5 Mg Tablet, 5 MG PO PRN DAILY PRN for Dialysis , (Reported) Entered as Reported by: DALILA SAGE on 11/13/182310 Last Action: New Order on 11/13/182310 by HOWARD SANZ MD Nov 14, 2018 14:38
--- NOTE | 2018-11-14 15:14 | NUR ---
SS following for discharge planning. Discharge order received for home with home healthcare. SS spoke with pt's daughter via phone. Pt's daughter reported that pt was previously on services with [facility], ; fax [phone]. SS phoned and faxed discharge orders and referral to [facility]. Pt's RN notified.
--- NOTE | 2018-11-14 15:47 | NUR ---
Condition stable w/o need for BiPaP since 299. [address] Guajardo in as well as Dr Dubois. Concur condition improved so is able to discharge and patients ability to follow up w MDs at following his care will continue to do so. Scheduled appointments will be kept and those for today rescheduled. Release of info signed by patient so info can be sent to patients drier helper and air carrier operations inspector at [facility].That information taken by Shereen (*DANIEL) so that can be done. Script for concentrator home w patient. Dr Dubios is sending another script for DANIEL to have copy to [facility] [place] since patient has original. PT/OT evaluation prior to discharge as ordered. Home w daughter per car /home health assist.. Continue home meds and follow up appointments.
--- NOTE | 2018-11-14 16:09 | NUR ---
SS following up with discharge planning. SS received script for oxygen. Pt previously on services with [facility]. SS phoned and faxed order and clinical to [facility] at [phone]; fax [phone].
[2018-11-23] MEDS ORDERED: IPRA3AMP29 NEB (12:34)
[2018-11-23] MEDS ORDERED: PRED-220 PO (12:34)
[2018-11-23] MEDS ORDERED: MONT10TA9 PO (12:34)
[2018-11-23] MEDS ORDERED: POLY17PO28 PO (12:34)
== END 2018-11-14 16:00 | disposition home health service (06) | DRG 291 ==
LOC: ER 18:09 → 1 WEST ICU 20:10
PROVIDERS: ADMIT Family Medicine; ATTEND Family Medicine
PROC: 5A09357 Assistance with Respiratory Ventilation, Less than 24 Consecutive Hours, Continuous Positive Airway Pressure (ICD-10-PCS; principal; 2018-11-13)
PROC: 5A09357 Assistance with Respiratory Ventilation, Less than 24 Consecutive Hours, Continuous Positive Airway Pressure (ICD-10-PCS; 2018-11-14)
DX: I13.2 Hypertensive heart and chronic kidney disease with heart failure and with stage 5 chronic kidney disease, or end stage renal disease (principal); N18.6 End stage renal disease; I50.33 Acute on chronic diastolic (congestive) heart failure; J96.22 Acute and chronic respiratory failure with hypercapnia; J96.21 Acute and chronic respiratory failure with hypoxia; J44.9 Chronic obstructive pulmonary disease, unspecified; I25.10 Atherosclerotic heart disease of native coronary artery without angina pectoris; E78.00 Pure hypercholesterolemia, unspecified; F32.9 Major depressive disorder, single episode, unspecified; I95.9 Hypotension, unspecified; E78.5 Hyperlipidemia, unspecified; E21.3 Hyperparathyroidism, unspecified; I48.2 Chronic atrial fibrillation; M19.90 Unspecified osteoarthritis, unspecified site; Z99.2 Dependence on renal dialysis; Z95.1 Presence of aortocoronary bypass graft; Z90.49 Acquired absence of other specified parts of digestive tract; Z98.49 Cataract extraction status, unspecified eye; Z82.49 Family history of ischemic heart disease and other diseases of the circulatory system; Z87.891 Personal history of nicotine dependence; Z99.81 Dependence on supplemental oxygen
CPT/HCPCS: 36415; 36600; 71045; 80048; 80053; 82805; 83735; 83880; 84100; 84484; 85007; 85025; 87641; 87804; 93005; 94618; 94640; 94644; 94660; 96361; 96374; J2930; J7040; J7613; J7620; J7644; 99285-25

== ENCOUNTER 2018-11-20 21:57 | Inpatient (IN) | payer MEDICARE ==
[~2018-11-20] VITALS: Ht 180.3 cm; Wt 68.5 kg
[~2018-11-20 21:57] MED LIST changes: +ACET325T9 PO; +ALBU2.5V5 NEB; +ALBU2.5V8 INH; +ATOR40TA59 PO; +CALC667T4 PO; +FOLI0.8T30 PO; +GUAI600T47 PO; +MELA3TAB43 PO; +MIDO5TAB PO; +UMEC1DIS IH
--- NOTE | 2018-11-20 22:27 | PHYS DOC ---
Past Medical History Past Medical History: Anemia, CAD, Depression, High Cholesterol, Hypertension, Renal Disease, Renal Failure, Other Additional Past Medical Histor: ESRD, Aortic dissection Past Surgical History: Appendectomy, Cholecystectomy, Coronary Bypass Surgery, Tonsillectomy, Other Additional Past Surgical Histo: CABG, cataract extraction, fistula KEI Arm Alcohol Use: Rarely Drug Use: None Adult General Chief Complaint Chief Complaint: SHORTNESS OF BREATH HPI HPI Patient is a 83 year old male who presents with SOA. Pt has relevant PMHx of ESRD on HD TThS, Afib, COPD. Pt states he was at dialysis today and started to become SOA. Has progressively gotten worse throughout the day. In fact when he went home he was sitting on the edge OF THE BED, he got acutely worse he was sweating this is unusual for him really no chest pain. He was okay yesterday. Pt complains of diaphoresis and generalized weakness. Has a non productive cough that is not new and unchanged. Denies CP, fever, dizziness. He is on 2L O2 at home. He sees a support manager and supervisor type bar and segment at . He has swelling of his right lower extremity he thinks that is old he's not sure it might gotten a little bit worse recently[] Review of Systems Review of Systems Constitutional: Denies fever or chills. Diaphoresis [] Eyes: Denies change in visual acuity, redness, or eye pain [] HENT: Denies nasal congestion or sore throat [] Respiratory: Complains of cough and shortness of breath [] Cardiovascular: No additional information not addressed in HPI [] GI: Denies abdominal pain, nausea, vomiting, bloody stools or diarrhea [] : Denies dysuria or hematuria [] Musculoskeletal: Denies back pain or joint pain [] Integument: Denies rash or skin lesions [] Neurologic: Denies headache, focal weakness or sensory changes [] Endocrine: Denies polyuria or polydipsia [] All other systems were reviewed and found to be within normal limits, except as documented in this note. Current Medications Current Medications Current Medications Medications (Trade) Dose Ordered Sig/Mesha Start Time Stop Time Status Last Admin Dose Admin Albuterol/ Ipratropium (Duoneb) 3 ml RTQID 11/21/18 08:00 11/22/18 07:59 Methylprednisolone Sodium Succinate (SOLU-Medrol 125MG VIAL) 125 mg 1X ONCE 11/20/18 22:30 11/20/18 22:31 DC Allergies Allergies Allergies Coded Allergies Type Severity Reaction Last Updated Verified lisinopril Allergy Severe 03/11/15 Yes Physical Exam Physical Exam Constitutional: Well developed, mild respiratory distress HENT: Normocephalic, atraumatic, bilateral external ears normal, oropharynx moist, no oral exudates, nose normal. [] Eyes: PERRLA, EOMI, conjunctiva normal, no discharge. [] Neck: Normal range of motion, no tenderness, supple, no stridor. [] Cardiovascular: No definite murmur noted irregular Lungs & Thorax: Bilateral expiratory wheeze. []Mild tachypnea Abdomen: Bowel sounds normal, soft, no tenderness, no masses, no pulsatile masses. [] Skin: Warm, dry, no erythema, no rash. [] Back: No tenderness, no CVA tenderness. [] Extremities: No tenderness, no cyanosis, no clubbing, ROM intact, Rt > Lt LE edema, pt states its stable. [] Neurologic: Alert and oriented X 3, normal motor function, normal sensory function, no focal deficits noted. [] Psychologic: Affect normal, judgement normal, mood normal. [] Current Patient Data Vital Signs Vital Signs Date Time Temp Pulse Resp B/P (MAP) Pulse Ox O2 Delivery O2 Flow Rate FiO2 11/20/18 22:35 100 Nasal Cannula 2.0 11/20/18 22:02 97.7 63 18 111/66 (81) 97.7 Lab Values Laboratory Tests Test 11/20/18 22:40 11/20/18 22:52 O2 Saturation 96 % (92-99) Arterial Blood pH 7.33 (7.35-7.45) L Arterial Blood pCO2 at Patient Temp 59 mmHg (35-46) H Arterial Blood pO2 at Patient Temp 92 mmHg (65-108) Arterial Blood HCO3 30 mmol/L (21-28) H Arterial Blood Base Excess 3 mmol/L (-3-3) FiO2 28 White Blood Count 6.9 x10^3/uL (4.0-11.0) Red Blood Count 3.72 x10^6/uL (4.30-5.70) L Hemoglobin 11.9 g/dL (13.0-17.5) L Hematocrit 35.8 % (39.0-53.0) L Mean Corpuscular Volume 96 fL (79-100) Mean Corpuscular Hemoglobin 32 pg (25-35) Mean Corpuscular Hemoglobin Concent 33 g/dL (31-37) Red Cell Distribution Width 15.0 % (11.5-14.5) H Platelet Count 125 x10^3/uL (140-400) L Neutrophils (%) (Auto) 69 % (31-73) Lymphocytes (%) (Auto) 8 % (24-48) L Monocytes (%) (Auto) 9 % (0-9) Eosinophils (%) (Auto) 14 % (0-3) H Basophils (%) (Auto) 0 % (0-3) Neutrophils # (Auto) 4.7 x10^3uL (1.8-7.7) Lymphocytes # (Auto) 0.5 x10^3/uL (1.0-4.8) L Monocytes # (Auto) 0.6 x10^3/uL (0.0-1.1) Eosinophils # (Auto) 1.0 x10^3/uL (0.0-0.7) H Basophils # (Auto) 0.0 x10^3/uL (0.0-0.2) Prothrombin Time 14.3 SEC (11.7-14.0) H Prothrombin Time INR 1.1 (0.8-1.1) Sodium Level 140 mmol/L (136-145) Potassium Level 4.1 mmol/L (3.5-5.1) Chloride Level 97 mmol/L (98-107) L Carbon Dioxide Level 33 mmol/L (21-32) H Anion Gap 10 (6-14) Blood Urea Nitrogen 42 mg/dL (8-26) H Creatinine 4.4 mg/dL (0.7-1.3) H Estimated GFR (Cockcroft-Gault) 12.9 BUN/Creatinine Ratio 10 (6-20) Glucose Level 109 mg/dL (70-99) H Calcium Level 9.0 mg/dL (8.5-10.1) Total Bilirubin 0.8 mg/dL (0.2-1.0) Aspartate Amino Transferase (AST) 33 U/L (15-37) Alanine Aminotransferase (ALT) 38 U/L (16-63) Alkaline Phosphatase 136 U/L (46-116) H Troponin I Quantitative 0.087 ng/mL (0.000-0.055) OW-Kql-V-Type Natriuretic Peptide > 85204 pg/mL (0-449) H Total Protein 7.1 g/dL (6.4-8.2) Albumin 3.9 g/dL (3.4-5.0) Albumin/Globulin Ratio 1.2 (1.0-1.7) Laboratory Tests 11/20/18 22:52 Laboratory Tests 11/20/18 22:52 EKG EKG []EKG shows probably A. fib no STEMI no obvious ischemia rate 68 QTC 514 Radiology/Procedures Radiology/Procedures [] Impressions: Chest x-ray has baseline cardiomegaly probably unchanged compared to prior chest x-ray subtle probably atelectasis at left base looks similar to me from prior Course & Med Decision Making Course & Med Decision Making Pertinent Labs and Imaging studies reviewed. (See chart for details) []83-year-old male multiple medical problems COPD on home oxygen apparently has a right diaphragmatic issue end-stage renal disease on hemodialysis CABG prior aortic dissection who is presenting with a chief complaint of shortness of breath. Probably multifactorial patient is wheezing we gave nebs he felt a little better troponin was elevated but actually better than it was before it seems to be fairly chronically elevated however he did have fairly acute dyspnea with diaphoresis so given his prior history he warrants admission for serial troponins. No definite pneumonia seen on x-ray patient was treated for COPD ultrasound of the right lower extremity is currently pending to evaluate for DVT. Admit to service of Dr. tinajero at this point in time I don't think patient needs BiPAP blood gas showed basically compensated respiratory acidosis Dragon Disclaimer Dragon Disclaimer This electronic medical record was generated, in whole or in part, using a voice recognition dictation system. Departure Departure Impression: Primary Impression: COPD exacerbation Referrals: LICHA BARFIELD MD (PCP) SHARYN MCCAULEY MD Nov 20, 2018 22:26
[2018-11-20] MEDS ORDERED: IPRATRPIUM/ALBUTEROL 0.5/2.5MG 3 ML NEBU. NEB ONE (22:30)
[2018-11-20] MEDS ORDERED: methylPREDNISolone SOD SUCC PF 125 MG/2 ML VIAL. IV ONE (22:30)
[2018-11-20 22:44] LABS: BASE EXCESS ABG 3 mmol/L (-3-3); HCO3 ABG 30 mmol/L (21-28); PCO2 ABG 59 mmHg (35-46); PO2 ABG 92 mmHg (65-108); SAT O2 ABG 96 % (92-99)
[2018-11-20 22:45] LABS: FIO2 ABG 28
[2018-11-20 23:11] LABS: BASO % 0 % (0-3); EOS % 14 % (0-3); HEMATOCRIT 35.8 % (39.0-53.0); HEMOGLOBIN 11.9 g/dL (13.0-17.5); LYMPH # 0.5 x10^3/uL (1.0-4.8); LYMPH % 8 % (24-48); MEAN CORPUSCULAR HEMOGLOBIN 32 pg (25-35); MEAN CORPUSCULAR HGB CONC 33 g/dL (31-37); MEAN CORPUSCULAR VOLUME 96 fL (79-100); MONO # 0.6 x10^3/uL (0.0-1.1); MONO % 9 % (0-9); NEUT # 4.7 x10^3uL (1.8-7.7); NEUT % 69 % (31-73); PLATELET COUNT 125 x10^3/uL (140-400); RED BLOOD COUNT 3.72 x10^6/uL (4.30-5.70); WHITE BLOOD COUNT 6.9 x10^3/uL (4.0-11.0)
[2018-11-20 23:14] LABS: CREATININE 4.4 mg/dL (0.7-1.3); GFR 12.9; POTASSIUM 4.1 mmol/L (3.5-5.1); PROTHROMBIN TIME PATIENT 14.3 SEC (11.7-14.0)
[2018-11-20 23:22] LABS: ALBUMIN 3.9 g/dL (3.4-5.0); ALBUMIN/GLOBULIN RATIO 1.2 (1.0-1.7); TOTAL BILIRUBIN 0.8 mg/dL (0.2-1.0); TOTAL PROTEIN 7.1 g/dL (6.4-8.2)
[2018-11-21] MEDS ORDERED: IPRATRPIUM/ALBUTEROL 0.5/2.5MG 3 ML NEBU. NEB ONE (00:30)
--- NOTE | 2018-11-21 01:03 | RAD ---
INDICATION: Right leg swelling COMPARISON: None. TECHNIQUE: Grayscale, color and doppler ultrasound images were obtained of the right lower extremity venous vasculature. RIGHT: No thrombus identified in the common femoral vein, femoral vein, popliteal vein or visualized calf veins. IMPRESSION: 1. No thrombus identified in deep venous system of right lower extremity. Electronically signed by: Arvin Sanders MD (11/21/2018 1:01 AM) [id number]
[2018-11-21 03:13] VITALS: BP 110/65
[2018-11-21 07:09] VITALS: BP 112/68
--- NOTE | 2018-11-21 07:16 | EKG ---
[facility] [address] [place] [address] Test Date: 2018-11-20 Test Time: 22:57:06 Pat Name: JERONIMO VIZCARRA Department: Room: 4 Gender: M [employer] Machine Operator: : [id number] Requested By: SHARYN MCCAULEY Order Number: [id number] Reading MD: Arun Dejesus Measurements Intervals [place] Rate: 68 P: DC: QRS: -143 QRSD: 130 T: 108 QT: 478 QTc: 514 Interpretive Statements ATRIAL FIBRILLATION. NON SPECIFIC INTRAVENTRICULAR BLOCK NONSPECIFIC ST-T WAVE CHANGES. Electronically Signed On 11-28-2018 11:31:29 CDT by Arun Dejesus
[2018-11-21] MEDS: IPRATRPIUM/ALBUTEROL 0.5/2.5MG 3 ML NEBU. NEB SCH ×4 (07:59→19:52)
--- NOTE | 2018-11-21 08:02 | RAD ---
Examination: PORTABLE CHEST 1V History: SOB Comparison/Correlation: 11/13/2018 portable chest x-ray exam Findings: Portable upright frontal view chest was obtained. Sternal wires are present. Surgical clips involve the right axillary region. Stent material overlies the left axillary region and appears to correspond with axillary vasculature. Epicardial leads noted. Right internal jugular dialysis catheter terminates overlying the superior cavoatrial junction. Cardiomegaly present. Pulmonary vasculature is borderline congested. Elevation right hemidiaphragm is present. Minimal right pleural effusion suggested. No dense infiltrate. Evaluation of the retrocardiac region may be mildly limited. Tortuosity of the thoracic aorta noted. Impression: Very small right pleural effusion is suggested. No significant change. Electronically signed by: Miguel Pandey MD (11/21/2018 7:59 AM) [facility]
--- NOTE | 2018-11-21 09:24 | PDOC1 ---
History and Physical Date of Admission Date of Admission DATE: 11/21/18 TIME: 09:24 Identification/Chief Complaint Chief Complaint short of breath and cough Source Source: Chart review, Patient History of Present Illness History of Present Illness Mr. Douglas is a 83 year old male who presents with recurrence of SOA. was at HD yesterday and had marked trouble breathing./ then worse in the PM and called an ambulance, he feels that thisis a pattern for him, with feeling worse a week after leaving the hospital, usually normally care is at [facility], yest, some sweats and chills, and weakness was worse he reports feeling better today, got some rest, breathing a little easier, no pain Past Medical History Past Medical History ESRD on HD TThS, Afib, COPD. Cardiovascular: CAD, HTN, Syncope, Hyperlipidemia, Other Pulmonary: No pertinent hx CENTRAL NERVOUS SYSTEM: Other GI: No pertinent hx Heme/Onc: Anemia NOS Psych: No pertinent hx Musculoskeletal: low back pain, Osteoarthritis Infectious disease: No pertinent hx Renal/: Chronic renal failure Endocrine: Hyperparathyroidism Past Surgical History Past Surgical History: Appendectomy, CABG, Other Family History Family History: Coronary Artery Disease Social History ALCOHOL: none Drugs: None Current Problem List Problem List Problems Medical Problems: (1) COPD exacerbation Status: Acute Current Medications Current Medications Current Medications Albuterol/ Ipratropium (Duoneb) 3 ml 1X ONCE NEB Last administered on 10/30 10/16at 22:35; Start 11/20/18 at 22:30; Stop 11/20/18 at 22:31; Status DC Methylprednisolone Sodium Succinate (SOLU-Medrol 125MG VIAL) 125 mg 1X ONCE IV Last administered on 11/21/18at 00:18; Start 11/20/18 at 22:30; Stop 11/20/18 at 22:31; Status DC Albuterol/ Ipratropium (Duoneb) 3 ml RTQID NEB Last administered on 11/21/18at 07:59; Start 11/21/18 at 08:00; Stop 11/22/18 at 07:59 Albuterol/ Ipratropium (Duoneb) 3 ml 1X ONCE NEB Last administered on 11/21/18at 00:27; Start 11/21/18 at 00:30; Stop 11/21/18 at 00:39; Status DC Active Scripts Active Phoslo (Calcium Acetate) 667 Mg Capsule 667 Mg PO TIDWMEALS Reported Renal Vitamin Tablet (Folic Acid/Vit Bcomp,C) 0.8 Mg Tablet 0.8 Mg PO DAILY Midodrine Hcl 5 Mg Tablet 5 Mg PO PRN DAILY PRN Melatonin 3 Mg Tab.rapdis 3 Mg PO DAILY Mucinex (Guaifenesin) 600 Mg Tablet.er 1 Tab PO DAILY Atorvastatin Calcium 40 Mg Tablet 40 Mg PO HS Albuterol Sulfate Neb Soln (Albuterol Sulfate) 2.5 Mg/3 Ml Vial.neb 2.5 Mg NEB PRN Q6HRS Proair Hfa Inhaler (Albuterol Sulfate) 8.5 Gm Hfa.aer.ad 2 Puff INH PRN Q6HRS PRN Tylenol (Acetaminophen) 325 Mg Tablet 650 Mg PO PRN Q6HRS Children's Aspirin (Aspirin) 81 Mg Tab.chew 81 Mg PO DAILY Allergies Allergies: Coded Allergies: lisinopril (Verified Allergy, Severe, 03/11/15) coughing ROS General: YES: Chills, Fatigue PSYCHOLOGICAL ROS: No: Anxiety, Behavioral Disorder, Concentration difficultie, Decreased libido, Depression, Disorientation, Hallucinations, Hostility, Irritablity, Memory difficulties, Mood Swings, Obsessive thoughts, Physical abuse, Sexual abuse, Sleep disturbances, Suicidal ideation, Other Eyes: No Blurry vision, No Decreased vision, No Double vision, No Dry eyes, No Excessive tearing, No Eye Pain, No Itchy Eyes, No Loss of vision, No Photophobia, No Scotomata, No Uses contacts, No Uses glasses, No Other HEENT: No: Heacaches, Visual Changes, Hearing change, Nasal congestion, Nasal discharge, Oral lesions, Sinus pain, Sore Throat, Epistaxis, Sneezing, Snoring, Tinnitus, Vertigo, Vocal changes, Other Respiratory: YES: Cough, Shortness of breath, SOB with excertion, Sputum Changes, Tachypnea; No: Hemoptysis, Orthopnea, Pleuritic Pain, Stridor, Wheezing, Other Cardiovascular: No Chest Pain, No Palpitations, No Orthopnea, No Paroxysmal Noc. Dyspnea, No Edema, No Lt Headedness, No Other Gastrointestinal: Yes Nausea; No Abdominal Pain, No Diarrhea, No Constipation, No Melena, No Hematochezia, No Other Genitourinary: No Dysuria, No Frequency, No Incontinence, No Hematuria, No Retention, No Discharge, No Urgency, No Pain, No Flank Pain, No Other, No , No , No , No , No , No , No Musculoskeletal: Yes Joint Stiffness, Yes Muscular Weakness; No Gait Disturbance, No Joint Pain, No Joint Swelling, No Muscle Pain, No Pain In:, No Swelling In:, No Other Neurological: No Behavorial Changes, No Bowel/Bladder ControlChng, No Confusion, No Dizziness, No Gait Disturbance, No Headaches, No Impaired Coord/balance, No Memory Loss, No Numbness/Tingling, No Seizures, No Speech Problems, No Tremors, No Visual Changes, No Weakness, No Other Skin: Yes Dry Skin; No Eczema, No Hair Changes, No Lumps, No Mole Changes, No Mottling, No Nail Changes, No Pruritus, No Rash, No Skin Lesion Changes, No Other, No Acne Physical Exam General: Alert, Cooperative, mild distress HEENT: Atraumatic, PERRLA, EOMI Lungs: Normal air movement, Other (rales, dull ) Heart: S1S2, no gallops Abdomen: Normal bowel sounds Extremities: No clubbing, Normal pulses Skin: Other (dry LE) Neuro: Normal gait, Normal speech, Sensation intact Psych/Mental Status: Mental status NL, Mood NL Vitals Vitals Vital Signs Date Time Temp Pulse Resp B/P (MAP) Pulse Ox O2 Delivery O2 Flow Rate FiO2 11/21/18 07:59 99 Nasal Cannula 2.0 11/21/18 07:09 98.2 82 19 112/68 (83) 98.2 Labs Labs Laboratory Tests Test 11/20/18 22:40 11/20/18 22:52 11/21/18 03:20 11/21/18 06:00 O2 Saturation 96 % (92-99) Arterial Blood pH 7.33 (7.35-7.45) Arterial Blood pCO2 at Patient Temp 59 mmHg (35-46) Arterial Blood pO2 at Patient Temp 92 mmHg (65-108) Arterial Blood HCO3 30 mmol/L (21-28) Arterial Blood Base Excess 3 mmol/L (-3-3) FiO2 28 White Blood Count 6.9 x10^3/uL (4.0-11.0) Red Blood Count 3.72 x10^6/uL (4.30-5.70) Hemoglobin 11.9 g/dL (13.0-17.5) Hematocrit 35.8 % (39.0-53.0) Mean Corpuscular Volume 96 fL (79-100) Mean Corpuscular Hemoglobin 32 pg (25-35) Mean Corpuscular Hemoglobin Concent 33 g/dL (31-37) Red Cell Distribution Width 15.0 % (11.5-14.5) Platelet Count 125 x10^3/uL (140-400) Neutrophils (%) (Auto) 69 % (31-73) Lymphocytes (%) (Auto) 8 % (24-48) Monocytes (%) (Auto) 9 % (0-9) Eosinophils (%) (Auto) 14 % (0-3) Basophils (%) (Auto) 0 % (0-3) Neutrophils # (Auto) 4.7 x10^3uL (1.8-7.7) Lymphocytes # (Auto) 0.5 x10^3/uL (1.0-4.8) Monocytes # (Auto) 0.6 x10^3/uL (0.0-1.1) Eosinophils # (Auto) 1.0 x10^3/uL (0.0-0.7) Basophils # (Auto) 0.0 x10^3/uL (0.0-0.2) Prothrombin Time 14.3 SEC (11.7-14.0) Prothromb Time International Ratio 1.1 (0.8-1.1) Sodium Level 140 mmol/L (136-145) Potassium Level 4.1 mmol/L (3.5-5.1) Chloride Level 97 mmol/L (98-107) Carbon Dioxide Level 33 mmol/L (21-32) Anion Gap 10 (6-14) Blood Urea Nitrogen 42 mg/dL (8-26) Creatinine 4.4 mg/dL (0.7-1.3) Estimated GFR (Cockcroft-Gault) 12.9 BUN/Creatinine Ratio 10 (6-20) Glucose Level 109 mg/dL (70-99) Calcium Level 9.0 mg/dL (8.5-10.1) Total Bilirubin 0.8 mg/dL (0.2-1.0) Aspartate Amino Transf (AST/SGOT) 33 U/L (15-37) Alanine Aminotransferase (ALT/SGPT) 38 U/L (16-63) Alkaline Phosphatase 136 U/L (46-116) Troponin I Quantitative 0.087 ng/mL (0.000-0.055) 0.091 ng/mL (0.000-0.055) 0.073 ng/mL (0.000-0.055) WY-Mwc-I-Type Natriuretic Peptide > 91298 pg/mL (0-449) Total Protein 7.1 g/dL (6.4-8.2) Albumin 3.9 g/dL (3.4-5.0) Albumin/Globulin Ratio 1.2 (1.0-1.7) Laboratory Tests Test 11/20/18 22:40 11/20/18 22:52 11/21/18 03:20 11/21/18 06:00 O2 Saturation 96 % (92-99) Arterial Blood pH 7.33 (7.35-7.45) Arterial Blood pCO2 at Patient Temp 59 mmHg (35-46) Arterial Blood pO2 at Patient Temp 92 mmHg (65-108) Arterial Blood HCO3 30 mmol/L (21-28) Arterial Blood Base Excess 3 mmol/L (-3-3) FiO2 28 White Blood Count 6.9 x10^3/uL (4.0-11.0) Red Blood Count 3.72 x10^6/uL (4.30-5.70) Hemoglobin 11.9 g/dL (13.0-17.5) Hematocrit 35.8 % (39.0-53.0) Mean Corpuscular Volume 96 fL (79-100) Mean Corpuscular Hemoglobin 32 pg (25-35) Mean Corpuscular Hemoglobin Concent 33 g/dL (31-37) Red Cell Distribution Width 15.0 % (11.5-14.5) Platelet Count 125 x10^3/uL (140-400) Neutrophils (%) (Auto) 69 % (31-73) Lymphocytes (%) (Auto) 8 % (24-48) Monocytes (%) (Auto) 9 % (0-9) Eosinophils (%) (Auto) 14 % (0-3) Basophils (%) (Auto) 0 % (0-3) Neutrophils # (Auto) 4.7 x10^3uL (1.8-7.7) Lymphocytes # (Auto) 0.5 x10^3/uL (1.0-4.8) Monocytes # (Auto) 0.6 x10^3/uL (0.0-1.1) Eosinophils # (Auto) 1.0 x10^3/uL (0.0-0.7) Basophils # (Auto) 0.0 x10^3/uL (0.0-0.2) Prothrombin Time 14.3 SEC (11.7-14.0) Prothromb Time International Ratio 1.1 (0.8-1.1) Sodium Level 140 mmol/L (136-145) Potassium Level 4.1 mmol/L (3.5-5.1) Chloride Level 97 mmol/L (98-107) Carbon Dioxide Level 33 mmol/L (21-32) Anion Gap 10 (6-14) Blood Urea Nitrogen 42 mg/dL (8-26) Creatinine 4.4 mg/dL (0.7-1.3) Estimated GFR (Cockcroft-Gault) 12.9 BUN/Creatinine Ratio 10 (6-20) Glucose Level 109 mg/dL (70-99) Calcium Level 9.0 mg/dL (8.5-10.1) Total Bilirubin 0.8 mg/dL (0.2-1.0) Aspartate Amino Transf (AST/SGOT) 33 U/L (15-37) Alanine Aminotransferase (ALT/SGPT) 38 U/L (16-63) Alkaline Phosphatase 136 U/L (46-116) Troponin I Quantitative 0.087 ng/mL (0.000-0.055) 0.091 ng/mL (0.000-0.055) 0.073 ng/mL (0.000-0.055) MU-Ukh-Y-Type Natriuretic Peptide > 47878 pg/mL (0-449) Total Protein 7.1 g/dL (6.4-8.2) Albumin 3.9 g/dL (3.4-5.0) Albumin/Globulin Ratio 1.2 (1.0-1.7) VTE Prophylaxis Ordered VTE Prophylaxis Devices: No VTE Pharmacological Prophylaxi: Yes Assessment/Plan Assessment/Plan acute bronchitis dyspnea on exertion chronic diastolic CHF ESRD weakness and debilty, was in acute rehab 1 month ago after DC from [facility] Sy MD Nov 21, 2018 09:24
[2018-11-21] MEDS: predniSONE 20 MG TABLET PO SCH (10:21)
[2018-11-21 11:16] VITALS: BP 111/52
--- NOTE | 2018-11-21 12:43 | PDOC2 ---
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 CURRENTLY DX WITH AECOPD. HE HAS ESRD AND IS ON OP HD ON TTS. LABS ARE C/W ESRD. BREATHING BETTER AFTER BEING ADMITTED. Past Medical History Cardiovascular: CAD, HTN, Syncope, Hyperlipidemia, Other Pulmonary: No pertinent hx CENTRAL NERVOUS SYSTEM: Other GI: No pertinent hx Heme/Onc: Anemia NOS Psych: No pertinent hx Musculoskeletal: low back pain, Osteoarthritis Infectious disease: No pertinent hx Renal/: Chronic renal failure Endocrine: Hyperparathyroidism Past Surgical History Past Surgical History: Appendectomy, CABG, Other Family History Family History: Coronary Artery Disease Social History ALCOHOL: none Drugs: None Current Problem List Problem List Problems Medical Problems: (1) COPD exacerbation Status: Acute Current Medications Current Medications Current Medications Albuterol/ Ipratropium (Duoneb) 3 ml 1X ONCE NEB Last administered on 11/20/18a t 22:35; Start 11/20/18 at 22:30; Stop 11/20/18 at 22:31; Status DC Methylprednisolone Sodium Succinate (SOLU-Medrol 125MG VIAL) 125 mg 1X ONCE IV Last administered on 11/21/18at 00:18; Start 11/20/18 at 22:30; Stop 11/20/18 at 22:31; Status DC Albuterol/ Ipratropium (Duoneb) 3 ml RTQID NEB Last administered on 11/21/18at 11:54; Start 11/21/18 at 08:00; Stop 11/22/18 at 07:59 Albuterol/ Ipratropium (Duoneb) 3 ml 1X ONCE NEB Last administered on 11/21/18at 00:27; Start 11/21/18 at 00:30; Stop 11/21/18 at 00:39; Status DC Prednisone (Prednisone) 40 mg DAILY PO Last administered on 11/21/18at 10:21; Start 11/21/18 at 09:30 Active Scripts Active Phoslo (Calcium Acetate) 667 Mg Capsule 667 Mg PO TIDWMEALS Reported Renal Vitamin Tablet (Folic Acid/Vit Bcomp,C) 0.8 Mg Tablet 0.8 Mg PO DAILY Midodrine Hcl 5 Mg Tablet 5 Mg PO PRN DAILY PRN Melatonin 3 Mg Tab.rapdis 3 Mg PO DAILY Mucinex (Guaifenesin) 600 Mg Tablet.er 1 Tab PO DAILY Atorvastatin Calcium 40 Mg Tablet 40 Mg PO HS Albuterol Sulfate Neb Soln (Albuterol Sulfate) 2.5 Mg/3 Ml Vial.neb 2.5 Mg NEB PRN Q6HRS Proair Hfa Inhaler (Albuterol Sulfate) 8.5 Gm Hfa.aer.ad 2 Puff INH PRN Q6HRS PRN Tylenol (Acetaminophen) 325 Mg Tablet 650 Mg PO PRN Q6HRS Children's Aspirin (Aspirin) 81 Mg Tab.chew 81 Mg PO DAILY Allergies Allergies: Coded Allergies: lisinopril (Verified Allergy, Severe, 03/11/15) coughing ROS PSYCHOLOGICAL ROS: YES: Anxiety Eyes: Yes Decreased vision HEENT: YES: Caprice ALLERGY AND IMMUNOLOGY: YES: Seasonal Allergies Respiratory: YES: Cough, Shortness of breath Gastrointestinal: Yes Constipation Genitourinary: YES Other (ANURIA) Musculoskeletal: Yes Muscular Weakness Neurological: Yes Weakness Skin: Yes Dry Skin Physical Exam General: Alert, No acute distress HEENT: Atraumatic, PERRLA Lungs: Clear to auscultation, Other (FEW EXP WHEEZES) Heart: Regular rate, Normal S1, Normal S2 Abdomen: Soft, No tenderness Extremities: No cyanosis Skin: No breakdown Neuro: Normal speech Psych/Mental Status: Mental status NL, Mood NL MUSCULOSKELETAL: No joint tenderness, No deformity, No swelling Vitals VITALS Vital Signs Date Time Temp Pulse Resp B/P (MAP) Pulse Ox O2 Delivery O2 Flow Rate FiO2 11/21/18 11:54 Nasal Cannula 2.0 11/21/18 11:16 98.7 55 20 111/52 (71) 97 98.7 Labs Labs Laboratory Tests Test 11/20/18 22:40 11/20/18 22:52 11/21/18 03:20 11/21/18 06:00 O2 Saturation 96 % (92-99) Arterial Blood pH 7.33 (7.35-7.45) Arterial Blood pCO2 at Patient Temp 59 mmHg (35-46) Arterial Blood pO2 at Patient Temp 92 mmHg (65-108) Arterial Blood HCO3 30 mmol/L (21-28) Arterial Blood Base Excess 3 mmol/L (-3-3) FiO2 28 White Blood Count 6.9 x10^3/uL (4.0-11.0) Red Blood Count 3.72 x10^6/uL (4.30-5.70) Hemoglobin 11.9 g/dL (13.0-17.5) Hematocrit 35.8 % (39.0-53.0) Mean Corpuscular Volume 96 fL (79-100) Mean Corpuscular Hemoglobin 32 pg (25-35) Mean Corpuscular Hemoglobin Concent 33 g/dL (31-37) Red Cell Distribution Width 15.0 % (11.5-14.5) Platelet Count 125 x10^3/uL (140-400) Neutrophils (%) (Auto) 69 % (31-73) Lymphocytes (%) (Auto) 8 % (24-48) Monocytes (%) (Auto) 9 % (0-9) Eosinophils (%) (Auto) 14 % (0-3) Basophils (%) (Auto) 0 % (0-3) Neutrophils # (Auto) 4.7 x10^3uL (1.8-7.7) Lymphocytes # (Auto) 0.5 x10^3/uL (1.0-4.8) Monocytes # (Auto) 0.6 x10^3/uL (0.0-1.1) Eosinophils # (Auto) 1.0 x10^3/uL (0.0-0.7) Basophils # (Auto) 0.0 x10^3/uL (0.0-0.2) Prothrombin Time 14.3 SEC (11.7-14.0) Prothromb Time International Ratio 1.1 (0.8-1.1) Sodium Level 140 mmol/L (136-145) Potassium Level 4.1 mmol/L (3.5-5.1) Chloride Level 97 mmol/L (98-107) Carbon Dioxide Level 33 mmol/L (21-32) Anion Gap 10 (6-14) Blood Urea Nitrogen 42 mg/dL (8-26) Creatinine 4.4 mg/dL (0.7-1.3) Estimated GFR (Cockcroft-Gault) 12.9 BUN/Creatinine Ratio 10 (6-20) Glucose Level 109 mg/dL (70-99) Calcium Level 9.0 mg/dL (8.5-10.1) Total Bilirubin 0.8 mg/dL (0.2-1.0) Aspartate Amino Transf (AST/SGOT) 33 U/L (15-37) Alanine Aminotransferase (ALT/SGPT) 38 U/L (16-63) Alkaline Phosphatase 136 U/L (46-116) Troponin I Quantitative 0.087 ng/mL (0.000-0.055) 0.091 ng/mL (0.000-0.055) 0.073 ng/mL (0.000-0.055) MH-Mxg-J-Type Natriuretic Peptide > 26062 pg/mL (0-449) Total Protein 7.1 g/dL (6.4-8.2) Albumin 3.9 g/dL (3.4-5.0) Albumin/Globulin Ratio 1.2 (1.0-1.7) Laboratory Tests Test 11/20/18 22:40 11/20/18 22:52 11/21/18 03:20 11/21/18 06:00 O2 Saturation 96 % (92-99) Arterial Blood pH 7.33 (7.35-7.45) Arterial Blood pCO2 at Patient Temp 59 mmHg (35-46) Arterial Blood pO2 at Patient Temp 92 mmHg (65-108) Arterial Blood HCO3 30 mmol/L (21-28) Arterial Blood Base Excess 3 mmol/L (-3-3) FiO2 28 White Blood Count 6.9 x10^3/uL (4.0-11.0) Red Blood Count 3.72 x10^6/uL (4.30-5.70) Hemoglobin 11.9 g/dL (13.0-17.5) Hematocrit 35.8 % (39.0-53.0) Mean Corpuscular Volume 96 fL (79-100) Mean Corpuscular Hemoglobin 32 pg (25-35) Mean Corpuscular Hemoglobin Concent 33 g/dL (31-37) Red Cell Distribution Width 15.0 % (11.5-14.5) Platelet Count 125 x10^3/uL (140-400) Neutrophils (%) (Auto) 69 % (31-73) Lymphocytes (%) (Auto) 8 % (24-48) Monocytes (%) (Auto) 9 % (0-9) Eosinophils (%) (Auto) 14 % (0-3) Basophils (%) (Auto) 0 % (0-3) Neutrophils # (Auto) 4.7 x10^3uL (1.8-7.7) Lymphocytes # (Auto) 0.5 x10^3/uL (1.0-4.8) Monocytes # (Auto) 0.6 x10^3/uL (0.0-1.1) Eosinophils # (Auto) 1.0 x10^3/uL (0.0-0.7) Basophils # (Auto) 0.0 x10^3/uL (0.0-0.2) Prothrombin Time 14.3 SEC (11.7-14.0) Prothromb Time International Ratio 1.1 (0.8-1.1) Sodium Level 140 mmol/L (136-145) Potassium Level 4.1 mmol/L (3.5-5.1) Chloride Level 97 mmol/L (98-107) Carbon Dioxide Level 33 mmol/L (21-32) Anion Gap 10 (6-14) Blood Urea Nitrogen 42 mg/dL (8-26) Creatinine 4.4 mg/dL (0.7-1.3) Estimated GFR (Cockcroft-Gault) 12.9 BUN/Creatinine Ratio 10 (6-20) Glucose Level 109 mg/dL (70-99) Calcium Level 9.0 mg/dL (8.5-10.1) Total Bilirubin 0.8 mg/dL (0.2-1.0) Aspartate Amino Transf (AST/SGOT) 33 U/L (15-37) Alanine Aminotransferase (ALT/SGPT) 38 U/L (16-63) Alkaline Phosphatase 136 U/L (46-116) Troponin I Quantitative 0.087 ng/mL (0.000-0.055) 0.091 ng/mL (0.000-0.055) 0.073 ng/mL (0.000-0.055) CF-Oma-S-Type Natriuretic Peptide > 85754 pg/mL (0-449) Total Protein 7.1 g/dL (6.4-8.2) Albumin 3.9 g/dL (3.4-5.0) Albumin/Globulin Ratio 1.2 (1.0-1.7) Assessment/Plan Assessment/Plan IMP ESRD ANEMIA AECOPD ACUTE BRONCHITIS CHRONIC DIASTOLIC CHF PLAN PULMONARY TX HD TTS HD TOMORROW WILL FOLLOW RAFAEL FLORES MD Nov 21, 2018 12:43
[2018-11-21 15:38] VITALS: BP 114/63
--- NOTE | 2018-11-21 15:45 | NUR ---
wound care patient seen per wound care consult. patient has a pink, peeling blanchable coccyx. patient stated he does lots of sitting. recommendations of Calazime cream, prn, applied Calazime at this time. ordered a chair cushion at this time. wound care will continue to f/u for changes.
--- NOTE | 2018-11-21 15:57 | PDOC ---
PULMONARY PROGRESS NOTES Vitals Vital Signs Date Time Temp Pulse Resp B/P (MAP) Pulse Ox O2 Delivery O2 Flow Rate FiO2 11/21/18 11:54 Nasal Cannula 2.0 11/21/18 11:16 98.7 55 20 111/52 (71) 97 98.7 Lungs: Clear Labs Laboratory Tests Test 11/20/18 22:40 11/20/18 22:52 11/21/18 03:20 11/21/18 06:00 O2 Saturation 96 % (92-99) Arterial Blood pH 7.33 (7.35-7.45) Arterial Blood pCO2 at Patient Temp 59 mmHg (35-46) Arterial Blood pO2 at Patient Temp 92 mmHg (65-108) Arterial Blood HCO3 30 mmol/L (21-28) Arterial Blood Base Excess 3 mmol/L (-3-3) FiO2 28 White Blood Count 6.9 x10^3/uL (4.0-11.0) Red Blood Count 3.72 x10^6/uL (4.30-5.70) Hemoglobin 11.9 g/dL (13.0-17.5) Hematocrit 35.8 % (39.0-53.0) Mean Corpuscular Volume 96 fL (79-100) Mean Corpuscular Hemoglobin 32 pg (25-35) Mean Corpuscular Hemoglobin Concent 33 g/dL (31-37) Red Cell Distribution Width 15.0 % (11.5-14.5) Platelet Count 125 x10^3/uL (140-400) Neutrophils (%) (Auto) 69 % (31-73) Lymphocytes (%) (Auto) 8 % (24-48) Monocytes (%) (Auto) 9 % (0-9) Eosinophils (%) (Auto) 14 % (0-3) Basophils (%) (Auto) 0 % (0-3) Neutrophils # (Auto) 4.7 x10^3uL (1.8-7.7) Lymphocytes # (Auto) 0.5 x10^3/uL (1.0-4.8) Monocytes # (Auto) 0.6 x10^3/uL (0.0-1.1) Eosinophils # (Auto) 1.0 x10^3/uL (0.0-0.7) Basophils # (Auto) 0.0 x10^3/uL (0.0-0.2) Prothrombin Time 14.3 SEC (11.7-14.0) Prothromb Time International Ratio 1.1 (0.8-1.1) Sodium Level 140 mmol/L (136-145) Potassium Level 4.1 mmol/L (3.5-5.1) Chloride Level 97 mmol/L (98-107) Carbon Dioxide Level 33 mmol/L (21-32) Anion Gap 10 (6-14) Blood Urea Nitrogen 42 mg/dL (8-26) Creatinine 4.4 mg/dL (0.7-1.3) Estimated GFR (Cockcroft-Gault) 12.9 BUN/Creatinine Ratio 10 (6-20) Glucose Level 109 mg/dL (70-99) Calcium Level 9.0 mg/dL (8.5-10.1) Total Bilirubin 0.8 mg/dL (0.2-1.0) Aspartate Amino Transf (AST/SGOT) 33 U/L (15-37) Alanine Aminotransferase (ALT/SGPT) 38 U/L (16-63) Alkaline Phosphatase 136 U/L (46-116) Troponin I Quantitative 0.087 ng/mL (0.000-0.055) 0.091 ng/mL (0.000-0.055) 0.073 ng/mL (0.000-0.055) WY-Tnq-R-Type Natriuretic Peptide > 82490 pg/mL (0-449) Total Protein 7.1 g/dL (6.4-8.2) Albumin 3.9 g/dL (3.4-5.0) Albumin/Globulin Ratio 1.2 (1.0-1.7) Laboratory Tests Test 11/20/18 22:40 11/20/18 22:52 11/21/18 03:20 11/21/18 06:00 O2 Saturation 96 % (92-99) Arterial Blood pH 7.33 (7.35-7.45) Arterial Blood pCO2 at Patient Temp 59 mmHg (35-46) Arterial Blood pO2 at Patient Temp 92 mmHg (65-108) Arterial Blood HCO3 30 mmol/L (21-28) Arterial Blood Base Excess 3 mmol/L (-3-3) FiO2 28 White Blood Count 6.9 x10^3/uL (4.0-11.0) Red Blood Count 3.72 x10^6/uL (4.30-5.70) Hemoglobin 11.9 g/dL (13.0-17.5) Hematocrit 35.8 % (39.0-53.0) Mean Corpuscular Volume 96 fL (79-100) Mean Corpuscular Hemoglobin 32 pg (25-35) Mean Corpuscular Hemoglobin Concent 33 g/dL (31-37) Red Cell Distribution Width 15.0 % (11.5-14.5) Platelet Count 125 x10^3/uL (140-400) Neutrophils (%) (Auto) 69 % (31-73) Lymphocytes (%) (Auto) 8 % (24-48) Monocytes (%) (Auto) 9 % (0-9) Eosinophils (%) (Auto) 14 % (0-3) Basophils (%) (Auto) 0 % (0-3) Neutrophils # (Auto) 4.7 x10^3uL (1.8-7.7) Lymphocytes # (Auto) 0.5 x10^3/uL (1.0-4.8) Monocytes # (Auto) 0.6 x10^3/uL (0.0-1.1) Eosinophils # (Auto) 1.0 x10^3/uL (0.0-0.7) Basophils # (Auto) 0.0 x10^3/uL (0.0-0.2) Prothrombin Time 14.3 SEC (11.7-14.0) Prothromb Time International Ratio 1.1 (0.8-1.1) Sodium Level 140 mmol/L (136-145) Potassium Level 4.1 mmol/L (3.5-5.1) Chloride Level 97 mmol/L (98-107) Carbon Dioxide Level 33 mmol/L (21-32) Anion Gap 10 (6-14) Blood Urea Nitrogen 42 mg/dL (8-26) Creatinine 4.4 mg/dL (0.7-1.3) Estimated GFR (Cockcroft-Gault) 12.9 BUN/Creatinine Ratio 10 (6-20) Glucose Level 109 mg/dL (70-99) Calcium Level 9.0 mg/dL (8.5-10.1) Total Bilirubin 0.8 mg/dL (0.2-1.0) Aspartate Amino Transf (AST/SGOT) 33 U/L (15-37) Alanine Aminotransferase (ALT/SGPT) 38 U/L (16-63) Alkaline Phosphatase 136 U/L (46-116) Troponin I Quantitative 0.087 ng/mL (0.000-0.055) 0.091 ng/mL (0.000-0.055) 0.073 ng/mL (0.000-0.055) UL-Pdn-T-Type Natriuretic Peptide > 85616 pg/mL (0-449) Total Protein 7.1 g/dL (6.4-8.2) Albumin 3.9 g/dL (3.4-5.0) Albumin/Globulin Ratio 1.2 (1.0-1.7) Medications Active Scripts Medications Dose Route/Sig Max Daily Dose Days Date Category Renal Vitamin Tablet (Folic Acid/Vit Bcomp,C) 0.8 Mg Tablet 0.8 Mg PO DAILY 11/13/18 Reported Midodrine Hcl 5 Mg Tablet 5 Mg PO PRN DAILY PRN 11/13/18 Reported Melatonin 3 Mg Tab.rapdis 3 Mg PO DAILY 11/13/18 Reported Mucinex (Guaifenesin) 600 Mg Tablet.er 1 Tab PO DAILY 11/13/18 Reported Atorvastatin Calcium 40 Mg Tablet 40 Mg PO HS 11/13/18 Reported Albuterol Sulfate Neb Soln (Albuterol Sulfate) 2.5 Mg/3 Ml Vial.neb 2.5 Mg NEB PRN Q6HRS 11/13/18 Reported Proair Hfa Inhaler (Albuterol Sulfate) 8.5 Gm Hfa.aer.ad 2 Puff INH PRN Q6HRS PRN 11/13/18 Reported Tylenol (Acetaminophen) 325 Mg Tablet 650 Mg PO PRN Q6HRS 11/13/18 Reported Phoslo (Calcium Acetate) 667 Mg Capsule 667 Mg PO TIDWMEALS 01/18/16 Rx Children's Aspirin (Aspirin) 81 Mg Tab.chew 81 Mg PO DAILY 10/13/14 Reported Impression . FULL NOTE DICTATED AECOPD POSSIBLE TOBY AGREE WITH CURRENT RX THANKS EDUARDO DIAZ MD Nov 21, 2018 15:57
[2018-11-21 19:00] VITALS: BP 97/49
[2018-11-21] MEDS ORDERED: ALBUTEROL SULFATE 2.5 MG/3 ML NEBU. NEB SCH (19:30)
[2018-11-21] MEDS ORDERED: ACETAMINOPHEN 325 MG TABLET. PO PRN (19:30)
[2018-11-21] MEDS: ATORVASTATIN CALCIUM 40 MG TABLET. PO SCH (20:26)
[2018-11-21] MEDS: MONTELUKAST SODIUM 10 MG TABLET. PO SCH (20:26)
[2018-11-21] MEDS: POLYETHYLENE GLYCOL 3350 17 GM PACKET. PO SCH (20:26)
[2018-11-21] MEDS: CALCIUM CARBONATE 500 MG TAB.CHEW PO PRN (21:48)
[2018-11-21 23:56] VITALS: BP 102/69
[2018-11-22 03:40] VITALS: BP 110/68
[2018-11-22] MEDS ORDERED: MIDODRINE 5 MG TABLET PO PRN (07:00)
[2018-11-22 07:30] VITALS: BP 104/60
[2018-11-22] MEDS: POLYETHYLENE GLYCOL 3350 17 GM PACKET. PO SCH (08:27)
[2018-11-22] MEDS: predniSONE 20 MG TABLET PO SCH (08:27)
[2018-11-22] MEDS: CALCIUM ACETATE 667 MG CAPSULE PO SCH ×3 (08:27→17:44)
[2018-11-22] MEDS: FOLIC/VIT B COMP W-C (RENAL) TABLET. PO SCH (08:27)
[2018-11-22] MEDS: ASPIRIN CHEWABLE 81 MG TABLET. PO SCH (08:27)
[2018-11-22] MEDS ORDERED: IV NORMAL SALINE 1000ML BAG 1,000 ML IV PRN ×2 (08:31)
[2018-11-22] MEDS ORDERED: ALBUMIN HUMAN 25% 200 ML IV PRN (08:45)
[2018-11-22] MEDS ORDERED: 0.9 % SODIUM CHLORIDE 10 ML DISP.SYRIN. IV PRN ×2 (08:45)
[2018-11-22] MEDS ORDERED: DIALYSIS PATIENT. MC PRN ×2 (08:45)
[2018-11-22] MEDS ORDERED: NON FORMULARY ITEM (Melatonin 3 MG) PO SCH (09:00)
--- NOTE | 2018-11-22 10:35 | PDOC ---
PULMONARY PROGRESS NOTES Vitals Vital Signs Date Time Temp Pulse Resp B/P (MAP) Pulse Ox O2 Delivery O2 Flow Rate FiO2 11/22/18 08:10 96 Nasal Cannula 2.0 11/22/18 07:30 97.9 71 18 104/60 (75) 97.9 Lungs: Clear Labs Laboratory Tests Test 11/20/18 22:40 11/20/18 22:52 11/21/18 03:20 11/21/18 06:00 O2 Saturation 96 % (92-99) Arterial Blood pH 7.33 (7.35-7.45) Arterial Blood pCO2 at Patient Temp 59 mmHg (35-46) Arterial Blood pO2 at Patient Temp 92 mmHg (65-108) Arterial Blood HCO3 30 mmol/L (21-28) Arterial Blood Base Excess 3 mmol/L (-3-3) FiO2 28 White Blood Count 6.9 x10^3/uL (4.0-11.0) Red Blood Count 3.72 x10^6/uL (4.30-5.70) Hemoglobin 11.9 g/dL (13.0-17.5) Hematocrit 35.8 % (39.0-53.0) Mean Corpuscular Volume 96 fL (79-100) Mean Corpuscular Hemoglobin 32 pg (25-35) Mean Corpuscular Hemoglobin Concent 33 g/dL (31-37) Red Cell Distribution Width 15.0 % (11.5-14.5) Platelet Count 125 x10^3/uL (140-400) Neutrophils (%) (Auto) 69 % (31-73) Lymphocytes (%) (Auto) 8 % (24-48) Monocytes (%) (Auto) 9 % (0-9) Eosinophils (%) (Auto) 14 % (0-3) Basophils (%) (Auto) 0 % (0-3) Neutrophils # (Auto) 4.7 x10^3uL (1.8-7.7) Lymphocytes # (Auto) 0.5 x10^3/uL (1.0-4.8) Monocytes # (Auto) 0.6 x10^3/uL (0.0-1.1) Eosinophils # (Auto) 1.0 x10^3/uL (0.0-0.7) Basophils # (Auto) 0.0 x10^3/uL (0.0-0.2) Prothrombin Time 14.3 SEC (11.7-14.0) Prothromb Time International Ratio 1.1 (0.8-1.1) Sodium Level 140 mmol/L (136-145) Potassium Level 4.1 mmol/L (3.5-5.1) Chloride Level 97 mmol/L (98-107) Carbon Dioxide Level 33 mmol/L (21-32) Anion Gap 10 (6-14) Blood Urea Nitrogen 42 mg/dL (8-26) Creatinine 4.4 mg/dL (0.7-1.3) Estimated GFR (Cockcroft-Gault) 12.9 BUN/Creatinine Ratio 10 (6-20) Glucose Level 109 mg/dL (70-99) Calcium Level 9.0 mg/dL (8.5-10.1) Total Bilirubin 0.8 mg/dL (0.2-1.0) Aspartate Amino Transf (AST/SGOT) 33 U/L (15-37) Alanine Aminotransferase (ALT/SGPT) 38 U/L (16-63) Alkaline Phosphatase 136 U/L (46-116) Troponin I Quantitative 0.087 ng/mL (0.000-0.055) 0.091 ng/mL (0.000-0.055) 0.073 ng/mL (0.000-0.055) GA-Ept-O-Type Natriuretic Peptide > 63550 pg/mL (0-449) Total Protein 7.1 g/dL (6.4-8.2) Albumin 3.9 g/dL (3.4-5.0) Albumin/Globulin Ratio 1.2 (1.0-1.7) Medications Active Scripts Medications Dose Route/Sig Max Daily Dose Days Date Category Renal Vitamin Tablet (Folic Acid/Vit Bcomp,C) 0.8 Mg Tablet 0.8 Mg PO DAILY 11/13/18 Reported Midodrine Hcl 5 Mg Tablet 5 Mg PO PRN DAILY PRN 11/13/18 Reported Melatonin 3 Mg Tab.rapdis 3 Mg PO DAILY 11/13/18 Reported Mucinex (Guaifenesin) 600 Mg Tablet.er 1 Tab PO DAILY 11/13/18 Reported Atorvastatin Calcium 40 Mg Tablet 40 Mg PO HS 11/13/18 Reported Albuterol Sulfate Neb Soln (Albuterol Sulfate) 2.5 Mg/3 Ml Vial.neb 2.5 Mg NEB PRN Q6HRS 11/13/18 Reported Proair Hfa Inhaler (Albuterol Sulfate) 8.5 Gm Hfa.aer.ad 2 Puff INH PRN Q6HRS PRN 11/13/18 Reported Tylenol (Acetaminophen) 325 Mg Tablet 650 Mg PO PRN Q6HRS 11/13/18 Reported Phoslo (Calcium Acetate) 667 Mg Capsule 667 Mg PO TIDWMEALS 01/18/16 Rx Children's Aspirin (Aspirin) 81 Mg Tab.chew 81 Mg PO DAILY 10/13/14 Reported Impression . AECOPD POSSIBLE TOBY AGREE WITH CURRENT RX THANKS Plan . STEROIDS POSSIBLE D/C TODAY EDUARDO DIAZ MD Nov 22, 2018 10:35
--- NOTE | 2018-11-22 11:38 | CONS ---
DATE OF CONSULTATION: 11/21/2018 ATTENDING PHYSICIAN: Dr. Christina Taveras REASON FOR CONSULTATION: The patient seen in pulmonary consultation at the request of Dr. Taveras for increasing shortness of air. HISTORY OF PRESENT ILLNESS: The patient is an 83-year-old that has end-stage renal disease, on hemodialysis, was presented with increasing shortness of breath over the last 2-3 days, cough, mostly nonproductive. The patient normally wears oxygen at bedtime. He has underlying COPD, quit 30 years ago. A chest x-ray was reviewed, no acute infiltrates. Apparently, the patient was diaphoretic and short of air in the Emergency Room, he was admitted. I was asked to see him in consultation. PAST MEDICAL HISTORY: Coronary artery disease, hypertension, hyperlipidemia, COPD, chronic respiratory failure, oxygen supplementation at bedtime, end-stage renal disease, on hemodialysis. PAST SURGICAL HISTORY: Status post appendectomy, coronary artery bypass grafting. FAMILY HISTORY: Coronary artery disease. SOCIAL HISTORY: He quit tobacco 30 years ago. ALLERGIES: LISINOPRIL. MEDICATIONS: List was reviewed. REVIEW OF SYSTEMS: As indicated in history of present illness, otherwise a 10-point system was reviewed and negative. PHYSICAL EXAMINATION: GENERAL: The patient was currently in no respiratory distress. VITAL SIGNS: Stable. O2 saturation on 2 liters was greater than 92%. HEENT: Eyes, the sclerae were nonicteric. NECK: Jugular venous distention was not elevated. No lymphadenopathy. CHEST: Full expansion. LUNGS: Poor airway flow with no wheezes. CARDIOVASCULAR: Regular rate and rhythm with S1, S2, no S3. ABDOMEN: Soft, nontender, nondistended. EXTREMITIES: No clubbing, cyanosis or edema. Chest x-ray normal. Labs were reviewed. IMPRESSION: 1. Acute on chronic hypoxemic hypercapnic respiratory failure. Arterial blood gas revealed a pH of 7.33, PaCO2 of 59, pO2 of 92. 2. Acute exacerbation of chronic obstructive pulmonary disease. 3. End-stage renal disease. 4. Elevated troponin. PLAN: 1. Continue current IV steroids. 2. Oxygen supplementation. 3. P.r.n. BiPAP and at bedtime. 4. Possible outpatient polysomnogram. I do appreciate the privilege in sharing in the patient's care. SABATO SISILLO, MD DR: JUDIE/bill JOB#: [id number] / [id number]
--- NOTE | 2018-11-22 12:14 | PDOC ---
Renal-Progress Notes Subjective Notes Notes LESS SOB History of Present Illness Hx of present illness STABLE Vitals Vitals Vital Signs Date Time Temp Pulse Resp B/P (MAP) Pulse Ox O2 Delivery O2 Flow Rate FiO2 11/22/18 08:10 96 Nasal Cannula 2.0 11/22/18 07:30 97.9 71 18 104/60 (75) 97.9 Weight Weight [ ] I.O. Intake and Output Intake and Output 11/22/18 07:00 Intake Total 2160 ml Balance 2160 ml Intake Oral 2160 ml # Voids 2 Review of Systems Constitutional: yes: weakness, alert Eyes: Yes: no symptom reported Pulmonary: Yes dyspnea Cardiovascular: Yes no symptom reported Gastrointestional: Yes: constipation Genitourinary: Yes: no symptom reported Musculoskeletal: Yes: no symptom reported Skin: Yes no symptom reported Psychiatric/Neurological: Yes: no symptom reported Endocrine: Yes: no symptom reported Physical Exam General Appearance: no apparent distress Respiratory: decreased breath sounds Heart: S1S2 Abdomen: bowel sounds present Genitourinary: bladder flat Extremities: pulses present Neurology: alert Musculoskeletal: low back pain, Osteoarthritis Assessment Assessment IMP DYSPNEA-BETTER ESRD ANEMIA AECOPD ACUTE BRONCHITIS CHRONIC DIASTOLIC CHF PLAN PULMONARY TX HD TODAY UF TO [facility] WILL FOLLOW RAFAEL FLORES MD Nov 22, 2018 12:14
[2018-11-22] MEDS: IPRATRPIUM/ALBUTEROL 0.5/2.5MG 3 ML NEBU. NEB SCH ×3 (12:58→20:19)
--- NOTE | 2018-11-22 13:00 | NUR ---
SW following pt for anticipated dc needs. Chart reviewed and DW RN, Physician. Pt has home health through [facility] and goes to [facility] on , Sat at 1000. PT/OT recommends SNU. Spoke with pt and pt's daughter, Lucy, phone: [phone] about SNU options and insurance coverage, Medicare star ratings. Pt's daughter provided with Star rating list from Medicare.gov. Daughter chose [facility]. SW phoned and faxed referral to [facility]. Pt acceptance and admission pending. Pt aware of plans and agreeable. Pt will need one more midnight per medicare guidelines.
--- NOTE | 2018-11-22 14:43 | PDOC ---
PROGRESS NOTES Chief Complaint Chief Complaint acute bronchitis dyspnea on exertion chronic diastolic CHF ESRD on HD weakness and debilty History of Present Illness History of Present Illness still weak cont PT and OT plan SNU discussed with daughter and patient in room Vitals Vitals Vital Signs Date Time Temp Pulse Resp B/P (MAP) Pulse Ox O2 Delivery O2 Flow Rate FiO2 11/22/18 12:58 Nasal Cannula 2.0 11/22/18 08:10 96 11/22/18 07:30 97.9 71 18 104/60 (75) 97.9 Physical Exam General: Alert, No acute distress Heart: Regular rate, Normal S1, Normal S2 Lungs: Clear Abdomen: Soft, No tenderness Extremities: No cyanosis Skin: No breakdown Review of Systems Review of Systems no nv,,.d Assessment and Plan Assessmemt and Plan Problems Medical Problems: (1) COPD exacerbation Status: Acute Comment Review of Relevant I have reviewed the following items luis (where applicable) has been applied. Labs Laboratory Tests Test 11/20/18 22:40 11/20/18 22:52 11/21/18 03:20 11/21/18 06:00 O2 Saturation 96 % (92-99) Arterial Blood pH 7.33 (7.35-7.45) Arterial Blood pCO2 at Patient Temp 59 mmHg (35-46) Arterial Blood pO2 at Patient Temp 92 mmHg (65-108) Arterial Blood HCO3 30 mmol/L (21-28) Arterial Blood Base Excess 3 mmol/L (-3-3) FiO2 28 White Blood Count 6.9 x10^3/uL (4.0-11.0) Red Blood Count 3.72 x10^6/uL (4.30-5.70) Hemoglobin 11.9 g/dL (13.0-17.5) Hematocrit 35.8 % (39.0-53.0) Mean Corpuscular Volume 96 fL (79-100) Mean Corpuscular Hemoglobin 32 pg (25-35) Mean Corpuscular Hemoglobin Concent 33 g/dL (31-37) Red Cell Distribution Width 15.0 % (11.5-14.5) Platelet Count 125 x10^3/uL (140-400) Neutrophils (%) (Auto) 69 % (31-73) Lymphocytes (%) (Auto) 8 % (24-48) Monocytes (%) (Auto) 9 % (0-9) Eosinophils (%) (Auto) 14 % (0-3) Basophils (%) (Auto) 0 % (0-3) Neutrophils # (Auto) 4.7 x10^3uL (1.8-7.7) Lymphocytes # (Auto) 0.5 x10^3/uL (1.0-4.8) Monocytes # (Auto) 0.6 x10^3/uL (0.0-1.1) Eosinophils # (Auto) 1.0 x10^3/uL (0.0-0.7) Basophils # (Auto) 0.0 x10^3/uL (0.0-0.2) Prothrombin Time 14.3 SEC (11.7-14.0) Prothromb Time International Ratio 1.1 (0.8-1.1) Sodium Level 140 mmol/L (136-145) Potassium Level 4.1 mmol/L (3.5-5.1) Chloride Level 97 mmol/L (98-107) Carbon Dioxide Level 33 mmol/L (21-32) Anion Gap 10 (6-14) Blood Urea Nitrogen 42 mg/dL (8-26) Creatinine 4.4 mg/dL (0.7-1.3) Estimated GFR (Cockcroft-Gault) 12.9 BUN/Creatinine Ratio 10 (6-20) Glucose Level 109 mg/dL (70-99) Calcium Level 9.0 mg/dL (8.5-10.1) Total Bilirubin 0.8 mg/dL (0.2-1.0) Aspartate Amino Transf (AST/SGOT) 33 U/L (15-37) Alanine Aminotransferase (ALT/SGPT) 38 U/L (16-63) Alkaline Phosphatase 136 U/L (46-116) Troponin I Quantitative 0.087 ng/mL (0.000-0.055) 0.091 ng/mL (0.000-0.055) 0.073 ng/mL (0.000-0.055) ZM-Aro-K-Type Natriuretic Peptide > 03622 pg/mL (0-449) Total Protein 7.1 g/dL (6.4-8.2) Albumin 3.9 g/dL (3.4-5.0) Albumin/Globulin Ratio 1.2 (1.0-1.7) Medications Current Medications Albuterol/ Ipratropium (Duoneb) 3 ml 1X ONCE NEB Last administered on 11/20/18 22:35; Start 11/20/18 at 22:30; Stop 11/20/18 at 22:31; Status DC Methylprednisolone Sodium Succinate (SOLU-Medrol 125MG VIAL) 125 mg 1X ONCE IV Last administered on 11/21/18 00:18; Start 11/20/18 at 22:30; Stop 11/20/18 at 22:31; Status DC Albuterol/ Ipratropium (Duoneb) 3 ml RTQID NEB Last administered on 11/21/18 19:52; Start 11/21/18 at 08:00; Stop 11/22/18 at 07:59; Status DC Albuterol/ Ipratropium (Duoneb) 3 ml 1X ONCE NEB Last administered on 11/21/18 00:27; Start 11/21/18 at 00:30; Stop 11/21/18 at 00:39; Status DC Prednisone (Prednisone) 40 mg DAILY PO Last administered on 11/22/18 08:27; Start 11/21/18 at 09:30 Montelukast Sodium (Singulair) 10 mg QHS PO Last administered on 11/21/18 20:26; Start 11/21/18 at 21:00 Acetaminophen (Tylenol) 650 mg PRN Q6HRS PRN PO MILD PAIN / TEMP; Start 11/21/18 at 19:30 Albuterol Sulfate (Ventolin Neb Soln) 2.5 mg PRN Q6HRS NEB Last administered on 11/22/18 08:36; Start 11/21/18 at 19:30 Aspirin (Children'S Aspirin) 81 mg DAILY PO Last administered on 11/22/18 08:27; Start 11/22/18 at 09:00 Atorvastatin Calcium (Lipitor) 40 mg HS PO Last administered on 11/21/18 20:26; Start 11/21/18 at 21:00 Calcium Acetate (Phoslo) 667 mg TIDWMEALS PO Last administered on 11/22/18 13:10; Start 11/22/18 at 08:00 Vitamin B Complex/ Vitamin C (Ivonne-Barney) 1 tab DAILY PO Last administered on 4/25/19at 08:27; Start 11/22/18 at 09:00 Guaifenesin (Mucinex) 600 mg DAILY PO Last administered on 11/22/18at 08:27; Start 11/22/18 at 09:00 Non-Formulary Medication (Melatonin ) 3 mg DAILY PO ; Start 11/22/18 at 09:00; Status UNV Midodrine (Proamatine) 5 mg PRN DAILY PRN PO DIALYSIS/SYNCOPE; Start 11/22/18 at 07:00 Polyethylene Glycol (miraLAX PACKET) 17 gm DAILY PO Last administered on 11/22/18at 08:27; Start 11/21/18 at 21:00 Calcium Carbonate/ Glycine (Tums) 500 mg PRN Q2HR PRN PO INDIGESTION Last administered on 11/21/18at 21:48; Start 11/21/18 at 21:45 Sodium Chloride 1,000 ml @ 1,000 mls/hr Q1H PRN IV hypotension; Start 11/22/18 at 08:31; Stop 11/22/18 at 14:30; Status DC Albumin Human 200 ml @ 200 mls/hr 1X PRN PRN IV Hypotension; Start 11/22/18 at 08:45; Stop 11/22/18 at 14:44 Sodium Chloride (Normal Saline Flush) 10 ml 1X PRN PRN IV AP catheter pack; Start 11/22/18 at 08:45; Stop 11/23/18 at 08:44 Sodium Chloride (Normal Saline Flush) 10 ml 1X PRN PRN IV LEGEND MAKER catheter pack; Start 11/22/18 at 08:45; Stop 11/23/18 at 08:44 Sodium Chloride 1,000 ml @ 400 mls/hr Q2H30M PRN IV PATENCY; Start 11/22/18 at 08:31; Stop 11/22/18 at 20:30 Info (PHARMACY MONITORING -- do not chart) 1 each PRN DAILY PRN MC SEE COMMENTS; Start 11/22/18 at 08:45; Status UNV Info (PHARMACY MONITORING -- do not chart) 1 each PRN DAILY PRN MC SEE COMMENTS; Start 11/22/18 at 08:45 Albuterol/ Ipratropium (Duoneb) 3 ml RTQID NEB Last administered on 11/22/18at 12:58; Start 11/22/18 at 12:00 Active Scripts Active Phoslo (Calcium Acetate) 667 Mg Capsule 667 Mg PO TIDWMEALS Reported Renal Vitamin Tablet (Folic Acid/Vit Bcomp,C) 0.8 Mg Tablet 0.8 Mg PO DAILY Midodrine Hcl 5 Mg Tablet 5 Mg PO PRN DAILY PRN Melatonin 3 Mg Tab.rapdis 3 Mg PO DAILY Mucinex (Guaifenesin) 600 Mg Tablet.er 1 Tab PO DAILY Atorvastatin Calcium 40 Mg Tablet 40 Mg PO HS Albuterol Sulfate Neb Soln (Albuterol Sulfate) 2.5 Mg/3 Ml Vial.neb 2.5 Mg NEB PRN Q6HRS Proair Hfa Inhaler (Albuterol Sulfate) 8.5 Gm Hfa.aer.ad 2 Puff INH PRN Q6HRS PRN Tylenol (Acetaminophen) 325 Mg Tablet 650 Mg PO PRN Q6HRS Children's Aspirin (Aspirin) 81 Mg Tab.chew 81 Mg PO DAILY Vitals/I & O Vital Sign - Last 24 Hours 11/21/18 11/21/18 11/21/18 11/21/18 15:38 16:12 19:00 20:00 Temp 97.7 97.8 97.7 97.8 Pulse 80 72 Resp 18 18 B/P (MAP) 114/63 (80) 97/49 (65) Pulse Ox 96 100 O2 Delivery Nasal Cannula Nasal Cannula Nasal Cannula Nasal Cannula O2 Flow Rate 3.0 2.0 3.0 2.0 11/21/18 11/21/18 11/22/18 11/22/18 21:16 23:56 03:40 07:30 Temp 97.9 97.7 97.9 97.9 97.7 97.9 Pulse 87 96 71 Resp 16 16 18 B/P (MAP) 102/69 (80) 110/68 (82) 104/60 (75) Pulse Ox 95 95 99 100 O2 Delivery Nasal Cannula Nasal Cannula Nasal Cannula Nasal Cannula O2 Flow Rate 2.0 3.0 3.0 3.0 11/22/18 11/22/18 11/22/18 08:00 08:10 12:58 Pulse Ox 96 O2 Delivery Nasal Cannula Nasal Cannula Nasal Cannula O2 Flow Rate 2.0 2.0 2.0 Intake and Output 4/24/19 4/24/19 4/25/19 15:00 23:00 07:00 Intake Total 1220 ml 700 ml 240 ml Balance 1220 ml 700 ml 240 ml JALEN NAM MD Nov 22, 2018 14:43
[2018-11-22 15:20] VITALS: BP 94/57
--- NOTE | 2018-11-22 16:23 | NUR ---
Pt has been accepted at [facility] and facility will have a bed available upon dc.
[2018-11-22] MEDS: CALCIUM CARBONATE 500 MG TAB.CHEW PO PRN (19:48)
[2018-11-22 19:52] VITALS: BP 107/58
[2018-11-22] MEDS: MONTELUKAST SODIUM 10 MG TABLET. PO SCH (21:17)
[2018-11-22] MEDS: ATORVASTATIN CALCIUM 40 MG TABLET. PO SCH (21:17)
[2018-11-22 23:37] VITALS: BP 97/56
[2018-11-23] MEDS: CALCIUM CARBONATE 500 MG TAB.CHEW PO PRN (02:58)
[2018-11-23 03:20] VITALS: BP 103/69
[2018-11-23 07:00] VITALS: BP 135/63
[2018-11-23] MEDS: IPRATRPIUM/ALBUTEROL 0.5/2.5MG 3 ML NEBU. NEB SCH ×2 (07:41→11:29)
[2018-11-23] MEDS: POLYETHYLENE GLYCOL 3350 17 GM PACKET. PO SCH (08:13)
[2018-11-23] MEDS: ASPIRIN CHEWABLE 81 MG TABLET. PO SCH (08:13)
[2018-11-23] MEDS: CALCIUM ACETATE 667 MG CAPSULE PO SCH ×2 (08:14→12:00)
[2018-11-23] MEDS: predniSONE 20 MG TABLET PO SCH (08:14)
[2018-11-23] MEDS: FOLIC/VIT B COMP W-C (RENAL) TABLET. PO SCH (08:14)
--- NOTE | 2018-11-23 09:49 | PDOC ---
PROGRESS NOTES Chief Complaint Chief Complaint acute bronchitis dyspnea on exertion chronic diastolic CHF ESRD on HD weakness and debility, acquired, History of Present Illness History of Present Illness still weak cont PT and OT plan SNU refused to walk yesterday due to rectal pain, has roids, refuses tx "too greasy" - odd conversation with me today Vitals Vitals Vital Signs Date Time Temp Pulse Resp B/P (MAP) Pulse Ox O2 Delivery O2 Flow Rate FiO2 11/23/18 08:00 Nasal Cannula 2.0 11/23/18 07:41 100 11/23/18 07:00 97.9 71 18 135/63 (87) 97.9 Physical Exam General: Alert, Oriented X3, Cooperative, No acute distress Heart: Regular rate, Normal S1, Normal S2 Lungs: Clear Abdomen: Soft, No tenderness Extremities: No cyanosis Skin: No breakdown Review of Systems Review of Systems no nv..d Assessment and Plan Assessmemt and Plan Problems Medical Problems: (1) COPD exacerbation Status: Acute Comment Review of Relevant I have reviewed the following items luis (where applicable) has been applied. Medications Current Medications Albuterol/ Ipratropium (Duoneb) 3 ml 1X ONCE NEB Last administered on 11/20/18at 22:35; Start 11/20/18 at 22:30; Stop 11/20/18 at 22:31; Status DC Methylprednisolone Sodium Succinate (SOLU-Medrol 125MG VIAL) 125 mg 1X ONCE IV Last administered on 11/21/18at 00:18; Start 11/20/18 at 22:30; Stop 11/20/18 at 22:31; Status DC Albuterol/ Ipratropium (Duoneb) 3 ml RTQID NEB Last administered on 11/21/18at 19:52; Start 11/21/18 at 08:00; Stop 11/22/18 at 07:59; Status DC Albuterol/ Ipratropium (Duoneb) 3 ml 1X ONCE NEB Last administered on 11/21/18at 00:27; Start 11/21/18 at 00:30; Stop 11/21/18 at 00:39; Status DC Prednisone (Prednisone) 40 mg DAILY PO Last administered on 11/23/18at 08:14; Start 11/21/18 at 09:30 Montelukast Sodium (Singulair) 10 mg QHS PO Last administered on 11/22/18 21:17; Start 11/21/18 at 21:00 Acetaminophen (Tylenol) 650 mg PRN Q6HRS PRN PO MILD PAIN / TEMP; Start 11/21/18 at 19:30 Albuterol Sulfate (Ventolin Neb Soln) 2.5 mg PRN Q6HRS NEB Last administered on 11/22/18at 08:36; Start 11/21/18 at 19:30 Aspirin (Children'S Aspirin) 81 mg DAILY PO Last administered on 11/23/18 08: 13; Start 11/22/18 at 09:00 Atorvastatin Calcium (Lipitor) 40 mg HS PO Last administered on 11/22/18 21:17; Start 11/21/18 at 21:00 Calcium Acetate (Phoslo) 667 mg TIDWMEALS PO Last administered on 11/23/18 08:14; Start 11/22/18 at 08:00 Vitamin B Complex/ Vitamin C (Ivonne-Barney) 1 tab DAILY PO Last administered on 11/23/18 08:14; Start 11/22/18 at 09:00 Guaifenesin (Mucinex) 600 mg DAILY PO Last administered on 11/23/18 08:13; Start 11/22/18 at 09:00 Non-Formulary Medication (Melatonin ) 3 mg DAILY PO ; Start 11/22/18 at 09:00; Status UNV Midodrine (Proamatine) 5 mg PRN DAILY PRN PO DIALYSIS/SYNCOPE; Start 11/22/18 at 07:00 Polyethylene Glycol (miraLAX PACKET) 17 gm DAILY PO Last administered on 11/23/18at 08:13; Start 11/21/18 at 21:00 Calcium Carbonate/ Glycine (Tums) 500 mg PRN Q2HR PRN PO INDIGESTION Last administered on 11/23/18at 02:58; Start 11/21/18 at 21:45 Sodium Chloride 1,000 ml @ 1,000 mls/hr Q1H PRN IV hypotension; Start 11/22/18 at 08:31; Stop 11/22/18 at 14:30; Status DC Albumin Human 200 ml @ 200 mls/hr 1X PRN PRN IV Hypotension; Start 11/22/18 at 08:45; Stop 11/22/18 at 14:44; Status DC Sodium Chloride (Normal Saline Flush) 10 ml 1X PRN PRN IV AP catheter pack; Start 11/22/18 at 08:45; Stop 11/23/18 at 08:44; Status DC Sodium Chloride (Normal Saline Flush) 10 ml 1X PRN PRN IV FINISHED CLOTH EXAMINER catheter pack; Start 11/22/18 at 08:45; Stop 11/23/18 at 08:44; Status DC Sodium Chloride 1,000 ml @ 400 mls/hr Q2H30M PRN IV PATENCY; Start 11/22/18 at 08:31; Stop 11/22/18 at 20:30; Status DC Info (PHARMACY MONITORING -- do not chart) 1 each PRN DAILY PRN MC SEE COMMENTS; Start 11/22/18 at 08:45; Status UNV Info (PHARMACY MONITORING -- do not chart) 1 each PRN DAILY PRN MC SEE COMMENTS; Start 11/22/18 at 08:45 Albuterol/ Ipratropium (Duoneb) 3 ml RTQID NEB Last administered on 11/23/18at 07:41; Start 11/22/18 at 12:00 Active Scripts Active Phoslo (Calcium Acetate) 667 Mg Capsule 667 Mg PO TIDWMEALS Reported Renal Vitamin Tablet (Folic Acid/Vit Bcomp,C) 0.8 Mg Tablet 0.8 Mg PO DAILY Midodrine Hcl 5 Mg Tablet 5 Mg PO PRN DAILY PRN Melatonin 3 Mg Tab.rapdis 3 Mg PO DAILY Mucinex (Guaifenesin) 600 Mg Tablet.er 1 Tab PO DAILY Atorvastatin Calcium 40 Mg Tablet 40 Mg PO HS Albuterol Sulfate Neb Soln (Albuterol Sulfate) 2.5 Mg/3 Ml Vial.neb 2.5 Mg NEB PRN Q6HRS Proair Hfa Inhaler (Albuterol Sulfate) 8.5 Gm Hfa.aer.ad 2 Puff INH PRN Q6HRS PRN Tylenol (Acetaminophen) 325 Mg Tablet 650 Mg PO PRN Q6HRS Children's Aspirin (Aspirin) 81 Mg Tab.chew 81 Mg PO DAILY Vitals/I & O Vital Sign - Last 24 Hours 11/22/18 11/22/18 11/22/18 11/22/18 12:58 15:20 16:07 19:52 Temp 98.8 98.4 98.8 98.4 Pulse 81 79 Resp 18 18 B/P (MAP) 94/57 (69) 107/58 (74) Pulse Ox 100 99 O2 Delivery Nasal Cannula Nasal Cannula Nasal Cannula Nasal Cannula O2 Flow Rate 2.0 3.0 2.0 3.0 11/22/18 11/22/18 11/22/18 11/23/18 20:00 20:19 23:37 03:20 Temp 97.7 97.9 97.7 97.9 Pulse 78 88 Resp 18 18 B/P (MAP) 97/56 (70) 103/69 (80) Pulse Ox 100 98 O2 Delivery Nasal Cannula Nasal Cannula Nasal Cannula Nasal Cannula O2 Flow Rate 2.0 2.0 3.0 3.0 11/23/18 11/23/18 11/23/18 07:00 07:41 08:00 Temp 97.9 97.9 Pulse 71 Resp 18 B/P (MAP) 135/63 (87) Pulse Ox 100 100 O2 Delivery Nasal Cannula Nasal Cannula Nasal Cannula O2 Flow Rate 3.0 2.0 2.0 Intake and Output 11/22/18 11/22/18 11/23/18 15:00 23:00 07:00 Intake Total 200 ml 200 ml 0 ml Balance 200 ml 200 ml 0 ml JALEN NAM MD Nov 23, 2018 09:48
[2018-11-23 11:00] VITALS: BP 104/67
--- NOTE | 2018-11-23 11:34 | PDOC ---
Renal-Progress Notes Subjective Notes Notes FEELING BETTER History of Present Illness Hx of present illness STABLE Vitals Vitals Vital Signs Date Time Temp Pulse Resp B/P (MAP) Pulse Ox O2 Delivery O2 Flow Rate FiO2 11/23/18 11:29 Nasal Cannula 2.0 11/23/18 07:41 100 11/23/18 07:00 97.9 71 18 135/63 (87) 97.9 Weight Weight [ ] I.O. Intake and Output Intake and Output 11/23/18 06:59 Intake Total 400 ml Balance 400 ml Intake Oral 400 ml # Voids 1 Review of Systems Constitutional: yes: weakness, alert Eyes: Yes: no symptom reported Pulmonary: Yes dyspnea Cardiovascular: Yes no symptom reported Gastrointestional: Yes: constipation Genitourinary: Yes: no symptom reported Musculoskeletal: Yes: no symptom reported Skin: Yes no symptom reported Psychiatric/Neurological: Yes: no symptom reported Endocrine: Yes: no symptom reported Physical Exam General Appearance: no apparent distress Respiratory: decreased breath sounds Heart: S1S2 Abdomen: bowel sounds present Genitourinary: bladder flat Extremities: pulses present Neurology: alert Musculoskeletal: low back pain, Osteoarthritis Assessment Assessment IMP DYSPNEA-BETTER ESRD ANEMIA AECOPD ACUTE BRONCHITIS CHRONIC DIASTOLIC CHF PLAN PULMONARY TX HD TOMORROW WILL FOLLOW RAFAEL FLORES MD Nov 23, 2018 11:34
--- NOTE | 2018-11-23 11:46 | PDOC ---
PULMONARY PROGRESS NOTES Subjective PT NOT MORE SOA Vitals Vital Signs Date Time Temp Pulse Resp B/P (MAP) Pulse Ox O2 Delivery O2 Flow Rate FiO2 11/23/18 11:29 Nasal Cannula 2.0 11/23/18 11:00 97.6 69 18 104/67 (79) 100 97.6 ROS: No Nausea, No Chest Pain, No Abdominal Pain, No Increase Cough Lungs: Clear Cardiovascular: S1, S2 Abdomen: Soft Neuro Exam: Alert Extremities: No Edema Skin: Warm Medications Active Scripts Medications Dose Route/Sig Max Daily Dose Days Date Category Renal Vitamin Tablet (Folic Acid/Vit Bcomp,C) 0.8 Mg Tablet 0.8 Mg PO DAILY 11/13/18 Reported Midodrine Hcl 5 Mg Tablet 5 Mg PO PRN DAILY PRN 11/13/18 Reported Melatonin 3 Mg Tab.rapdis 3 Mg PO DAILY 11/13/18 Reported Mucinex (Guaifenesin) 600 Mg Tablet.er 1 Tab PO DAILY 11/13/18 Reported Atorvastatin Calcium 40 Mg Tablet 40 Mg PO HS 11/13/18 Reported Albuterol Sulfate Neb Soln (Albuterol Sulfate) 2.5 Mg/3 Ml Vial.neb 2.5 Mg NEB PRN Q6HRS 11/13/18 Reported Proair Hfa Inhaler (Albuterol Sulfate) 8.5 Gm Hfa.aer.ad 2 Puff INH PRN Q6HRS PRN 11/13/18 Reported Tylenol (Acetaminophen) 325 Mg Tablet 650 Mg PO PRN Q6HRS 11/13/18 Reported Phoslo (Calcium Acetate) 667 Mg Capsule 667 Mg PO TIDWMEALS 01/18/16 Rx Children's Aspirin (Aspirin) 81 Mg Tab.chew 81 Mg PO DAILY 10/13/14 Reported Impression . IMPRESSION: 1. Acute on chronic hypoxemic hypercapnic respiratory failure. Arterial blood gas revealed a pH of 7.33, PaCO2 of 59, pO2 of 92. 2. Acute exacerbation of chronic obstructive pulmonary disease. 3. End-stage renal disease. 4. Elevated troponin. Plan . PT TO TRANSFER NORMALLY SEE MARINE STEWARD AT FOLLOW UP WITH ME NEEDED FOR POSSIBLE SLEEP STUDY EDUARDO DAIZ MD Nov 23, 2018 11:46
[2018-11-23] MEDS ORDERED: IPRA3AMP29 NEB (12:34)
[2018-11-23] MEDS ORDERED: PRED-220 PO (12:34)
[2018-11-23] MEDS ORDERED: POLY17PO28 PO (12:34)
[2018-11-23] MEDS ORDERED: MONT10TA9 PO (12:34)
--- NOTE | 2018-11-23 13:21 | SNU/HH DC ---
DISCHARGE ORDERS DISCHARGE INFORMATION: DISCHARGE DATE: Nov 23, 2018 FINAL DIAGNOSIS Problems Medical Problems: (1) COPD exacerbation Status: Acute CONDITION ON DISCHARGE: Stable CODE STATUS: Code Status: Full PENITENTIARY: SNF STAY <30 DAYS: Yes POST DISCHARGE ORDERS: ACTIVITY ORDERS: No restrictions, Resume previous activity, Activity as tolerated WEIGHT BEARING STATUS: Full weight bearing DIET AFTER DISCHARGE: Cardiac WOUND/INCISION CARE: Reinforce dressing PRN CHECKS AFTER DISCHARGE: CHECKS AFTER DISCHARGE: Check blood press - daily FOLLOW-UP: PHYSICIAN FOLLOW-UP: 2 weeks, primary ADDITIONAL FOLLOW-UP: moira Jung 2-4 weeks TREATMENT/EQUIPMENT ORDERS: ADAPTIVE EQUIPMENT NEEDED: Walker RESPIRATORY EQUIPMENT NEEDED: Oxygen Physical Therapy For: Evalulation/Treatment Occupational Therapy For: Evaluation/Treatment DISCHARGE MEDICATIONS: Home Meds Active Scripts Prednisone (PREDNISONE ) 10 Mg Tablet, 10 MG PO UD for COPD, AE, #28 TAB 0 Refills Take 4 tablets by mouth daily for 4 days, then take 3 tablets by mouth daily for 2 days, then take 2 tablets by mouth daily for 2 days, then take 1 tablets by mouth daily for 2 days, then stop. Prov:JALEN NAM MD 11/23/18 Polyethylene Glycol 3350 (POLYETHYLENE GLYCOL 3350) 17 Gm Powd.pack, 17 GM PO DAILY for constipation, #30 PKT Prov:JALEN NAM MD 11/23/18 Montelukast Sodium (MONTELUKAST SODIUM TABLET) 10 Mg Tablet, 10 MG PO QHS for allergies, #30 TAB Prov:JALEN NAM MD 11/23/18 Ipratropium/Albuterol Sulfate (DUONEB 0.5-3(2.5) MG/3 ML) 3 Ml Ampul.neb, 3 ML NEB RTQID for COPD, #60 EACH Prov:JALEN NAM MD 11/23/18 Calcium Acetate (PHOSLO) 667 Mg Capsule, 667 MG PO TIDWMEALS, #90 Prov:JALEN NAM MD 01/18/16 Reported Medications Folic Acid/Vit Bcomp,C (Renal Vitamin Tablet) 0.8 Mg Tablet, 0.8 MG PO DAILY for Dialysis , TAB 11/13/18 Midodrine Hcl (MIDODRINE HCL) 5 Mg Tablet, 5 MG PO PRN DAILY PRN for Dialysis , TAB 11/13/18 Melatonin (MELATONIN) 3 Mg Tab.rapdis, 3 MG PO DAILY for sleep, TAB 11/13/18 Guaifenesin (MUCINEX) 600 Mg Tablet.er, 1 TAB PO DAILY for mucus, #14 TAB 11/13/18 Atorvastatin Calcium (ATORVASTATIN CALCIUM) 40 Mg Tablet, 40 MG PO HS for FOR CHOLESTEROL, #30 TAB 0 Refills 11/13/18 Albuterol Sulfate (ALBUTEROL SULFATE NEB SOLN) 2.5 Mg/3 Ml Vial.neb, 2.5 MG NEB PRN Q6HRS for Shortness of breath, EACH 0 Refills 11/13/18 Albuterol Sulfate (PROAIR HFA INHALER) 8.5 Gm Hfa.aer.ad, 2 PUFF INH PRN Q6HRS PRN for SHORTNESS OF BREATH, INHALER 0 Refills 11/13/18 Acetaminophen (TYLENOL) 325 Mg Tablet, 650 MG PO PRN Q6HRS for pain, TAB 11/13/18 Aspirin (Children's Aspirin) 81 Mg Tab.chew, 81 MG PO DAILY, TAB.CHEW 10/13/14 JALEN NAM MD Nov 23, 2018 13:21
--- NOTE | 2018-11-23 13:26 | NUR ---
SW following pt. SW phoned and faxed orders to [facility]. Pt will transport via central transport at 1345. Pt's choice and rights forms verbally consented by pt and copies on chart. Pt's daughter, Lucy notified of plan and agreeable. Packet on chart. LOGAN MASSEY.
--- NOTE | 2018-11-23 13:38 | NUR ---
Discharge Note: JERONIMO VIZCARRA [address] [place] [address] Discharge instructions and discharge home medications reviewed with Other facility and a copy given. Report given to [facility] at 1345. Prednisone, PEG, and Montelukast scripts in packet. Discontinued lines and drains: 1 PIV with tip intact. Patient discharged to [facility] via transport.
== END 2018-11-23 13:45 | DRG 189 ==
LOC: ER 21:57 → 6 SOUTH 23:00
PROVIDERS: ADMIT Internal Medicine; ATTEND Internal Medicine
PROC: 5A1D70Z Performance of Urinary Filtration, Intermittent, Less than 6 Hours Per Day (ICD-10-PCS; principal; 2018-11-23)
DX: J96.21 Acute and chronic respiratory failure with hypoxia (principal); N18.6 End stage renal disease; J44.0 Chronic obstructive pulmonary disease with (acute) lower respiratory infection; I13.2 Hypertensive heart and chronic kidney disease with heart failure and with stage 5 chronic kidney disease, or end stage renal disease; I50.32 Chronic diastolic (congestive) heart failure; J44.1 Chronic obstructive pulmonary disease with (acute) exacerbation; J96.22 Acute and chronic respiratory failure with hypercapnia; J20.9 Acute bronchitis, unspecified; D64.9 Anemia, unspecified; E78.00 Pure hypercholesterolemia, unspecified; E78.5 Hyperlipidemia, unspecified; F32.9 Major depressive disorder, single episode, unspecified; E21.3 Hyperparathyroidism, unspecified; I25.10 Atherosclerotic heart disease of native coronary artery without angina pectoris; I48.91 Unspecified atrial fibrillation; Z90.49 Acquired absence of other specified parts of digestive tract; Z95.1 Presence of aortocoronary bypass graft; Z99.2 Dependence on renal dialysis; Z99.81 Dependence on supplemental oxygen; Z88.8 Allergy status to other drugs, medicaments and biological substances; Z87.891 Personal history of nicotine dependence; Z82.49 Family history of ischemic heart disease and other diseases of the circulatory system
CPT/HCPCS: 36415; 36600; 71045; 80053; 82805; 83880; 84484; 85025; 85610; 93005; 93971; 94640; 94760; 96374; J2930; J7512; J7613; J7620; 97110; 97535; 99285-25